=== PATIENT | female | born 1995 | race Caucasian/White ===

== ENCOUNTER 2016-08-19 00:36 | Inpatient (IN) | payer MEDICAID ==
[2016-08-19 01:12] LABS: APPEARANCE,URINE CLOUDY; BILIRUBIN,URINE NEGATIVE (NEGATIVE); GLUCOSE, URINE NEGATIVE (NEGATIVE); KETONES,URINE NEGATIVE (NEGATIVE); LEUKOCYTE ESTERASE,URINE SMALL (NEGATIVE); NITRITE,URINE NEGATIVE (NEGATIVE); PROTEIN,URINE 30 mg/dL (NEGATIVE); URINE SPECIFIC GRAVITY 1.021; UROBILINOGEN,URINE NEGATIVE mg/dL (<2.0)
[2016-08-19 01:21] LABS: AMNISURE (ROM) POSITIVE (NEGATIVE)
[2016-08-19] MEDS ORDERED: RINGERS SOLUTION,LACTATED 1,000 ML IV ONE (01:23)
[2016-08-19] MEDS ORDERED: PENICILLIN G-K 5 MILLION UNIT VIAL ONE (01:28)
[2016-08-19 01:29] LABS: URINE BARBITURATES SCREEN NEGATIVE; URINE METHADONE SCREEN NEGATIVE; URINE OPIATES LOW NEGATIVE; URINE PHENCYCLIDINE SCREEN NEGATIVE
[2016-08-19] MEDS ORDERED: PENICILLIN G-K 5 MILLION UNIT VIAL IV PRN (01:29)
[2016-08-19] MEDS ORDERED: PENICILLIN G POTASSIUM 5,000,000 UNIT in DEXTROSE 5%-WATER 100 ML IV ONE (01:30)
[2016-08-19] MEDS: RINGERS SOLUTION,LACTATED 1,000 ML IV PRN ×2 (01:53→02:19)
[2016-08-19 01:56] LABS: ABSOLUTE BASOPHILS # (AUTO) 0.1 10^3/uL (0.0-0.2); ABSOLUTE EOSINOPHILS # (AUTO) 0.2 10^3/uL (0.0-0.6); ABSOLUTE LYMPHOCYTES (AUTO) 3.6 10^3/uL (0.5-4.7); ABSOLUTE MONOCYTES (AUTO) 0.9 10^3/uL (0.1-1.4); ABSOLUTE NEUT (AUTO) 11.3 10^3/uL (1.7-8.2); BASOPHILS % (AUTO) 0.7 % (0-2); EOSINOPHILS % (AUTO) 1.4 % (0-6); HEMATOCRIT 30.7 % (36.0-47.0); HEMOGLOBIN 10.3 g/dL (12.0-15.5); HGB HCT DIFFERENCE 0.2; LYMPHOCYTES % (AUTO) 22.1 % (13-45); MEAN CORPUSCULAR HEMOGLOBIN 27.7 pg (27.0-33.4); MEAN CORPUSCULAR HGB CONC 33.7 g/dL (32.0-36.0); MEAN CORPUSCULAR VOLUME 82 fl (80-97); MONOCYTES % (AUTO) 5.5 % (3-13); RED BLOOD COUNT 3.74 10^6/uL (3.72-5.28); RED CELL DISTRIBUTION WIDTH 16.7 % (11.5-14.0); SEGMENTED NEUTROPHILS % (AUTO) 70.3 % (42-78); WHITE BLOOD COUNT 16.1 10^3/uL (4.0-10.5)
[2016-08-19] MEDS ORDERED: MISOPROSTOL 0.2 MG TABLET ONE (02:33)
[2016-08-19] MEDS ORDERED: OXYTOCIN/NORMAL SALINE 20 UNIT/1,000 ML RTUINJ ONE (02:33)
[2016-08-19] MEDS ORDERED: LIDOCAINE 1% INJ-PF (10 MG/ML) 30 ML SDV ONE (02:33)
[2016-08-19] MEDS ORDERED: FENTANYL/BUPIVACAINE/NS/PF 0 MCG/0 ML RTUINJ EPI ONE (02:33)
[2016-08-19] MEDS ORDERED: EPHEDRINE SULFATE INJ 50 MG/1 ML AMPULE ONE (02:33)
[2016-08-19] MEDS ORDERED: BUPIVACAINE HCL 0.25 % INJ/PF (2.5 MG/1 ML) 30 ML VIAL ONE (02:34)
[2016-08-19] MEDS ORDERED: DIPH/PERTUSS(ACELL)/TETANUS VAC/PF 0.5 ML SYR (>=10YO) IM PRN (03:50)
[2016-08-19] MEDS ORDERED: DIBUCAINE 1% OINTMENT 28 GM TP PRN (03:50)
[2016-08-19] MEDS ORDERED: MEASLES,MUMPS&RUBELLA VACC/PF 0.5 ML VIAL SUBCUT PRN (03:50)
[2016-08-19] MEDS ORDERED: ZOLPIDEM TARTRATE 5 MG TABLET PO PRN (03:50)
[2016-08-19] MEDS ORDERED: OXYTOCIN/NORMAL SALINE 1,000 ML IV PRN (03:50)
[2016-08-19] MEDS ORDERED: ACETAMINOPHEN WITH CODEINE #3 TABLET PO PRN (03:50)
[2016-08-19] MEDS ORDERED: BENZOCAINE/MENTHOL AEROSOL SPRAY 56 ML TOP PRN (03:50)
--- NOTE | 2016-08-19 04:43 | Delivery Summary ---
Del Sum A-C Datetime Report Generated by CPN: 08/19/2016 04:42 DELIVERY PERSONNEL DELIVERY PERSONNEL: [id number] Delivery Doctor:: Teresa Bustillos MD Labor and Delivery Nurse:: Sheryl Spain RNacoustical tile patternmaker Nurse:: Dinora Liriano RN Carbon Printer/DIRECTOR VIDEO: Olesya Semar, MANUFACTURED BUILDINGS REPAIRER MATERNAL INFORMATION Delivery Anesthesia: None Medications After Delivery: Pitocin Drip 20 Units/1000ml NSS Maternal Complications: Precipitous Labor (<3hrs) LABOR SUMMARY EDC: 09/01/2016 00:00 No. Babies in Womb: 1 Attempted: No Labor Anesthesia: None LABOR INFORMATION Reason for Induction: Not Applicable Onset of Labor: 08/19/2016 01:18 Complete Dilatation: 08/19/2016 03:19 Oxytocin: N/A Group B Beta Strep: Positive Antibiotics # of Doses: 1 Antibiotics Time of Last Dose: 0151 Name of Antibiotic Given: PCN Steroids Given: None Reason Steroids Not Administered: Not Applicable MEMBRANES Membranes Rupture Method: Spontaneous Rupture of Membranes: 08/18/2016 14:30 Length of Rupture (hr): 13.00 Amniotic Fluid Color: Clear Amniotic Fluid Odor: Normal STAGES OF LABOR Stage 1 hr: 2 Stage 1 min: 1 Stage 2 hr: 0 Stage 2 min: 11 Stage 3 hr: 0 Stage 3 min: 4 Total Time in Labor hr: 2 Total Time in Labor min: 16 VAGINAL DELIVERY Episiotomy: None Laceration Extension: N/A Laceration Type: None Laceration Repair: Not Applicable Sponge Count Correct: N/A Sharps Count Correct: N/A CSECTION DELIVERY Primary Indication: N/A Secondary Indication: N/A CSection Incidence: N/A Labor: N/A Elective: N/A CSection Incision: N/A BABY A INFORMATION Delivery Date/Time: 08/19/2016 03:30 Method of Delivery: Vaginal Born in Route : No : N/A Forceps: N/A Vacuum Extraction: N/A Shoulder Dystocia : No PRESENTATION/POSITION BABY A Presentation: Cephalic Cephalic Presentation: Vertex Vertex Position: Left Occipital Anterior Breech Presentation: N/A PLACENTA INFORMATION BABY A Placenta Delivery Time : 08/19/2016 03:34 Placenta Method of Delivery: Spontaneous Placenta Status: Delivered SCORES BABY A Heart Rate 1 min: >100 bpm Resp Effort 1 min: Good Cry Reflex Irritability 1 min: Cough or Sneeze or Pulls Away Muscle Tone 1 min: Active Motion Color 1 min: Body [place], Extremities Blue Resuscitation Effort 1 min: Tactile Stimulation SCORE 1 MIN: 9 Heart Rate 5 min: >100 bpm Resp Effort 5 min: Good Cry Reflex Irritability 5 min: Cough or Sneeze or Pulls Away Muscle Tone 5 min: Active Motion Color 5 min: Body [place], Extremities Blue Resuscitation Effort 5 min: Tactile Stimulation SCORE 5 MIN: 9 INFANT INFORMATION BABY A Gestational Age at Delivery: 38.1 Gestational Status: Early Term- 37- 38.6 Weeks Infant Outcome : Liveborn Infant Condition : Stable Infant Sex: Male IDENTIFICATION BABY A Verification Date/Time: 08/19/2016 03:39 ID Band Number: [id number] Mother's Name Verified: Yes Infant RN Verifying : R Dhara, RNC Additional Verifying Personnel: C Marianna, RN WEIGHT/LENGTH BABY A Birthweight (gm): 3500 Infant Weight (lb): 7 Infant Weight (oz): 11 Length (in): 19.00 Infant Length (cm): 48.26 CORD INFORMATION BABY A No. Cord Vessels: 3 Nuchal Cord : N/A Cord Blood Taken: Yes-For Storage (Mom's Blood type +) ASSESSMENT BABY A Skin to Skin: Yes BABY B INFORMATION : N/A SIGNATURES Signature: with User ID: Zander
[2016-08-19] MEDS ORDERED: IBUPROFEN 800 MG TABLET ONE (04:56)
[2016-08-19] MEDS: IBUPROFEN 800 MG TABLET PO SCH ×3 (05:01→22:03)
[2016-08-19] MEDS ORDERED: PENICILLIN G POTASSIUM 2,500,000 UNIT in DEXTROSE 5%-WATER 50 ML IV SCH (05:30)
--- NOTE | 2016-08-19 05:58 | Admission Physical ---
Datetime Report Generated by CPN: 08/19/2016 05:58 CURRENT ADMISSION Chief Complaint: Uterine Contractions; Vaginal Bleeding Indication for Induction: Not Applicable Admit Plan: Admit to Unit; Initiate Labor Protocol ALLERGIES Medication Allergies: Yes Medication Allergies: aspirin (04/16/2015) Latex: No Latex Allergies Food Allergies: N/A Environmental Allergies: N/A OBSTETRICAL HISTORY EDC: 09/01/2016 00:00 : 2 Para: 1 Term: 1 : 0 SAB: 0 IAB: 0 Ectopic: 0 Livin Cesareans: 0 VBACs: 0 Multiple Births: 0 Gestational Diabetes: No Rh Sensitization: No Incompetent Cervix: No MARY: No Infertility: No ART Treatment: No Uterine Anomaly: No IUGR: No Hx Previous C/S: No Macrosomia: No Hx Loss/Stillborn: No PIH: No Hx : No Placenta Previa/Abruption: No Depression/PP Depression: No PTL/PROM: No Post Hemorrhage: No Current Procedures: Ultrasound Obstetrical History Comments: G1 - 2015, , Girl G2 - Current SEE RECORDS Alcohol: No Marijuana : No Cocaine: No Other Illicit Drugs: No Cigarettes: Current Everyday Smoker. 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 Surgery: No Heart Disease: No Hosp/Surgery: Yes Autoimmune Disorder: No Anesthetic Complications: No Kidney Disease: Yes Abnormal Pap Smear: No Neuro/Epilepsy: No Psychiatric Disorders: No Other Medical Diseases: No Hepatitis/Liver Disease: No Significant Family History: No Varicosities/Phlebitis: No Trauma/Violence : No Thyroid Dysfunction: No Medical History Comments: UTI's, T_A INFECTIOUS HISTORY Gonorrhea: No Genital Herpes: No Chlamydia: No Tuberculosis: No Syphilis: No Hepatitis: No HIV/AIDS Exposure: No Rash or Viral Illness: No HPV: No PHYSICAL EXAM General: Normal HEENT: Normal Neurologic: Normal Thyroid: Normal Heart: Normal Lungs: Normal Breast: Normal Back: Normal Abdomen: Normal Genitourinary Exam: Normal Extremities: Normal DTRs: Normal Pelvic Type: Adequate Vital Signs: Reviewed VAGINAL EXAM Dilatation: 7 Effacement: 90 Station: -1 MEMBRANES Pooling: Positive Membranes: Ruptured Amniotic Fluid Color: Clear FETUS A EGA: 38.1 Monitoring: External US FHR- Baseline: 130 Variability: Moderate 6-25bpm Accelerations: 15X15 Decelerations: None FHR Category: Category I Estimated Weight (gm): 3700 Presentation: Vertex PLANS FOR LABOR AND DELIVERY Labor and Delivery: None Pain Management: Epidural Feeding Preference: Formula Benefit of Breast Feed Discussed: Yes Circumcision: Yes INFORMED CONSENT Signature: with User ID: Zander Signature: with User ID: Zander : with User ID: Zander
[2016-08-19] MEDS: SENNOSIDES/DOCUSATE 8.6-50 MG 1 EACH TABLET PO SCH (09:50)
[2016-08-19] MEDS: FERROUS SULFATE 325 MG TABLET PO SCH ×2 (09:50→17:34)
[2016-08-19] MEDS: PRENATAL VITAMIN W-O CA NO5/FE FUMARATE/FA CAPSULE PO SCH (09:50)
[2016-08-19] MEDS: DOCUSATE SODIUM 100 MG CAPSULE PO SCH ×2 (09:51→17:33)
--- NOTE | 2016-08-19 10:28 | PDOC PROGRESS REPORT ---
Subjective-OB Subjective: Post Delivery Day: 20 year old. Denies any needs at this time Physical Exam (OB) Vital Signs: Temp Pulse Resp BP Pulse Ox 97.6 F 100 H 17 138/79 H 100 08/19/16 05:46 08/19/16 05:46 08/19/16 05:46 08/19/16 05:46 08/19/16 05:46 Intake & Output 08/18/16 08/19/16 08/20/16 06:59 06:59 06:59 Weight 132.5 kg - Lochia Lochia Amount: Scant < 10 ml Lochia Color: Rubra/Red - Abdomen Description: Tender, Soft Hernia Present: No Bowel Sounds: Normoactive Flatus Presence: Present Stool: No Fundal Description: Firm, Midline Fundal Height: u/u - u/2 Objective-Diagnostic Laboratory: 08/19/16 01:44 08/19/16 08/19/16 08/19/16 00:51 01:44 01:44 WBC 16.1 H RBC 3.74 Hgb 10.3 L Hct 30.7 L MCV 82 MCH 27.7 MCHC 33.7 RDW 16.7 H Plt Count 312 Seg Neutrophils % 70.3 Lymphocytes % 22.1 Monocytes % 5.5 Eosinophils % 1.4 Basophils % 0.7 Absolute Neutrophils 11.3 H Absolute Lymphocytes 3.6 Absolute Monocytes 0.9 Absolute Eosinophils 0.2 Absolute Basophils 0.1 Urine Color YELLOW Urine Appearance CLOUDY Urine pH 6.0 Ur Specific Hydro 1.021 Urine Protein 30 H Urine Glucose (UA) NEGATIVE Urine Ketones NEGATIVE Urine Blood NEGATIVE Urine Nitrite NEGATIVE Ur Leukocyte Esterase SMALL H Blood Type A POSITIVE Antibody Screen NEGATIVE
[2016-08-19] MEDS: ACETAMINOPHEN WITH CODEINE #3 TABLET PO PRN ×3 (12:01→22:03)
[2016-08-20] MEDS: ACETAMINOPHEN WITH CODEINE #3 TABLET PO PRN ×4 (02:40→22:58)
[2016-08-20] MEDS: IBUPROFEN 800 MG TABLET PO SCH ×3 (06:07→22:08)
[2016-08-20 07:11] LABS: HEMATOCRIT 28.9 % (36.0-47.0); HEMOGLOBIN 9.6 g/dL (12.0-15.5); HGB HCT DIFFERENCE -0.1; MEAN CORPUSCULAR HEMOGLOBIN 27.7 pg (27.0-33.4); MEAN CORPUSCULAR HGB CONC 33.1 g/dL (32.0-36.0); MEAN CORPUSCULAR VOLUME 84 fl (80-97); RED BLOOD COUNT 3.46 10^6/uL (3.72-5.28); RED CELL DISTRIBUTION WIDTH 16.7 % (11.5-14.0); WHITE BLOOD COUNT 11.1 10^3/uL (4.0-10.5)
[2016-08-20] MEDS: PRENATAL VITAMIN W-O CA NO5/FE FUMARATE/FA CAPSULE PO SCH (09:28)
[2016-08-20] MEDS: DOCUSATE SODIUM 100 MG CAPSULE PO SCH ×2 (09:28→17:24)
[2016-08-20] MEDS: FERROUS SULFATE 325 MG TABLET PO SCH ×2 (09:28→17:23)
[2016-08-20] MEDS: SENNOSIDES/DOCUSATE 8.6-50 MG 1 EACH TABLET PO SCH (09:28)
--- NOTE | 2016-08-20 10:35 | PDOC PROGRESS REPORT ---
Subjective-OB Subjective: Post Delivery Day: 20 year old. Denies any needs at this time. Pt doing well, no concerns. Reports light bleeding, regular diet and voiding well. Physical Exam (OB) Vital Signs: Temp Pulse Resp BP Pulse Ox 98.2 F 64 16 121/77 100 08/20/16 08:12 08/20/16 08:12 08/20/16 08:12 08/20/16 08:12 08/20/16 08:12 Intake & Output 08/19/16 08/20/16 08/21/16 06:59 06:59 06:59 Intake Total 250 Balance 250 Weight 132.5 kg - Lochia Lochia Amount: Scant < 10 ml Lochia Color: Rubra/Red - Abdomen Description: Tender, Soft Hernia Present: No Fundal Description: Firm, Midline Fundal Height: u/u - u/2 Objective-Diagnostic Laboratory: 08/20/16 07:05 08/20/16 07:05 WBC 11.1 H RBC 3.46 L Hgb 9.6 L Hct 28.9 L MCV 84 MCH 27.7 MCHC 33.1 RDW 16.7 H Plt Count 259 Assessment and Plan(PN) - Assessment and Plan (1) Delivery normal Is this a current diagnosis for this admission?: Yes (2) Insufficient antepartum care Is this a current diagnosis for this admission?: Yes (3) Nurse controlled delivery Is this a current diagnosis for this admission?: Yes - Time Spent with Patient Time with patient: Less than 15 minutes Medications reviewed and adjusted accordingly: Yes - Disposition Anticipated Discharge: Home Within: within 48 hours
[2016-08-20] MEDS: FAMOTIDINE 20 MG TABLET PO SCH (22:08)
[2016-08-21] MEDS: IBUPROFEN 800 MG TABLET PO SCH (05:45)
[2016-08-21] MEDS: ACETAMINOPHEN WITH CODEINE #3 TABLET PO PRN (07:36)
[2016-08-21 08:23] VITALS: BP 140/71
[2016-08-21] MEDS: FAMOTIDINE 20 MG TABLET PO SCH (09:56)
[2016-08-21] MEDS: PRENATAL VITAMIN W-O CA NO5/FE FUMARATE/FA CAPSULE PO SCH (09:56)
[2016-08-21] MEDS: DOCUSATE SODIUM 100 MG CAPSULE PO SCH (09:56)
[2016-08-21] MEDS: SENNOSIDES/DOCUSATE 8.6-50 MG 1 EACH TABLET PO SCH (09:56)
[2016-08-21] MEDS: FERROUS SULFATE 325 MG TABLET PO SCH (09:56)
--- NOTE | 2016-08-21 11:14 | PDOC DISCHARGE SUMMARY ---
Final Diagnosis Discharge Date: 08/21/16 - Final Diagnosis (1) Delivery normal Is this a current diagnosis for this admission?: Yes (2) Insufficient antepartum care Is this a current diagnosis for this admission?: Yes (3) Nurse controlled delivery Is this a current diagnosis for this admission?: Yes Discharge Data - Discharge Medication Home Medications: Vit No.129/Iron/FA [ One Daily Tablet] 1 tab PO DAILY 09/16/15 Ibuprofen [Motrin 800 mg Tablet] 800 mg PO Q8 #60 tablet 08/21/16 Reason(s) for Admission: Onset of Labor Intrapartum Procedure(s): Spontaneous Vaginal Delivery - Diagnosis Test Laboratory: Temp Pulse Resp BP Pulse Ox 98.1 F 92 H 16 140/75 H 99 08/19/16 20:06 08/19/16 20:06 08/19/16 20:06 08/19/16 20:06 08/19/16 20:06 08/19/16 08/19/16 08/20/16 00:51 01:44 07:05 RBC 3.74 3.46 L Hgb 10.3 L 9.6 L Hct 30.7 L 28.9 L Urine Opiates Screen NEGATIVE - Discharge information/Instructions Discharge Activity: Balance Activity w/Rest, Pelvic Rest Discharge Diet: Regular Disposition: HOME, SELF-CARE Follow up with: [facility] in: 1, Weeks
--- NOTE | 2016-08-21 15:26 | L&D Discharge Summary ---
OB Discharge Summary Datetime Report Generated by CPN: 08/21/2016 15:25 DISCHARGE DIAGNOSIS Gestation: 38.1 Number of Babies in Womb: 1 Parity: 1
--- NOTE | 2016-08-21 16:45 | L&D General Admission ---
General Admit Datetime Report Generated by CPN: 08/21/2016 16:45 INFORMATION Patient Age: 20 (06/23/2016 13:28:QS system process) EDC: 09/01/2016 00:00 (08/19/2016 01:04:Sheryl Spain RN) : 2 (08/19/2016 01:04:Sheryl Spain RN) Para: 1 (08/19/2016 01:04:Sheryl Spain RN) Term: 1 (08/19/2016 01:04:Dinora Liriano RN) : 0 (08/19/2016 01:04:Dinora Liriano RN) Spontaneous Abortions: 0 (08/19/2016 01:04:Dinora Liriano RN) Induced Abortions: 0 (08/19/2016 01:04:Dinora Liriano RN) Livin (08/19/2016 01:04:Dinora Liriano RN) Cesareans: 0 (08/19/2016 01:04:Dinora Liriano RN) VBACs: 0 (08/19/2016 01:04:Dinora Liriano RN) Ectopic: 0 (08/19/2016 01:04:Dinora Liriano RN) Multiple Births: 0 (08/19/2016 01:04:Dinora Liriano RN) Baby, Number in Womb: 1 (08/19/2016 01:04:Dinora Liriano RN) CARE Primary Indian Blanket Weaver: [facility] (08/19/2016 01:04:Sheryl Spain RN) Adequate Care: Yes (08/19/2016 01:04:Sheryl Spain RN) Height (in): 61 (08/21/2016 11:14:QS system process) Height (in): 61 (08/19/2016 09:19:QS system process) Height (in): 61 (08/19/2016 05:57:QS system process) Height (in): 61 (08/19/2016 03:34:QS system process) Height (in): 61 (08/19/2016 01:35:QS system process) Height (in): 61 (08/19/2016 01:32:QS system process) Height (in): 61 (08/19/2016 01:30:QS system process) ALLERGIES Medication Allergy: Yes (08/19/2016 01:04:Sheryl Spain RN) Medication Allergies: aspirin (04/16/2015) (06/23/2016 13:28:QS system process) Latex Allergy: No Latex Allergies (08/19/2016 01:04:Sheryl Spain RN) Food Allergies: N/A (08/19/2016 01:04:Sheryl Spain RN) Environmental Allergies: N/A (08/19/2016 01:04:Sheryl Spain RN) COMMUNICATION Primary Language: Icelandic (08/19/2016 01:04:Sheryl Spain RN) Medical Tx Preferred Language: Icelandic (08/19/2016 01:04:Sheryl Spain RN) DEMOGRAPHICS Address: [address] [place] [id number] (06/23/2016 13:28:QS system process) Zipcode: [address] (06/23/2016 13:28:QS system process) Home (06/23/2016 13:28:QS system process) SSN: [id number] (06/23/2016 13:28:QS system process) Next of Kin Name: ALBERTO FAITH (06/23/2016 13:28:QS system process) Next of Kin (06/23/2016 13:28:QS system process) Next of Kin Relationship: MO (06/23/2016 13:28:QS system process) Date of : 1995 (06/23/2016 13:28:QS system process) Marital Status: Single (06/23/2016 13:28:QS system process) Sex: Female (06/23/2016 13:28:QS system process) Race: (06/23/2016 13:28:QS system process) Ethnicity: Non- or (06/23/2016 13:28:QS system process) Denominational: Restorationist (06/23/2016 13:28:QS system process) FOB Involved: Yes (08/19/2016 01:04:Sheryl Spain RN) DRUG AND ALCOHOL USE Alcohol: No (08/19/2016 01:04:Sheryl Spain RN) Cigarettes: Current Everyday Smoker. [id number] (08/19/2016 01:04:Sheryl Spain RN) Average Cigarettes Smoked: > 10 per day (08/19/2016 01:04:Sheryl Spain RN) Advised to Stop Smoking: Yes (08/19/2016 01:04:Sheryl Spain RN) Marijuana: No (08/19/2016 01:04:Sheryl Spain RN) Cocaine: No (08/19/2016 01:04:Sheryl Spain RN) Other Illicit Drugs: No (08/19/2016 01:04:Sheryl Spain RN) VACCINE HISTORY Influenza Vaccine: No (08/19/2016 01:04:Sheryl Spain RN) Pneumococcal Vaccine: No (08/19/2016 01:04:Sheryl Spain RN) Tetanus Vaccine: No (08/19/2016 01:04:Sheryl Spain RN) Tdap Vaccine: No (08/19/2016 01:04:Sheryl Spain RN) Hepatitis B Vaccine: No (08/19/2016 01:04:Sheryl Spain RN) Postdoctoral Research Associate: [facility] (08/19/2016 01:04:Sheryl Spain RN) Feeding Preference: Formula (08/19/2016 01:04:Sheryl Spain RN) Benefit of Breast Feed Discussed: Yes (08/19/2016 01:04:Sheryl Spain RN) Circumcision: Yes (08/19/2016 01:04:Sheryl Spain RN) Classes Attended: No (08/19/2016 01:04:Sheryl Spain RN) Tubal Ligation: No (08/19/2016 01:04:Sheryl Spain RN) Tubal Authorization Signed: N/A (08/19/2016 01:04:Sheryl Spain RN) Consent: N/A (08/19/2016 01:04:Sheryl Spain RN) Consent Signed: N/A (08/19/2016 01:04:Sheryl Spain RN) Pain Management Plans: Epidural (08/19/2016 01:04:Sheryl Spain RN) Plans for Labor and Delivery: None (08/19/2016 01:04:Sheryl Spain RN) Support Person: Daryn Rasmussen (08/19/2016 01:04:Sheryl Spain RN) Support Person Relationship: Significant Other (08/19/2016 01:04:Sheryl Spain RN) Cultural/Spritual Practice: No (08/19/2016 01:04:Sheryl Spain RN) Spir/Cult Dietary Needs: No (08/19/2016 01:04:Sheryl Spain RN) LIVING SITUATION/DISCHARGE PLAN Living Arrangements: House (08/19/2016 01:04:Sheryl Spain RN) Adequate Access to:: Electric; Heat; Refrigeration; Plumbing/Running water; Phone; Transportation (08/19/2016 01:04:Sheryl Spain RN) WIC Program: Yes (08/19/2016 01:04:Sheryl Spain RN) Discharge Systems Checkout Mechanic Person: Daryn Rasmussen (08/19/2016 01:04:Sheryl Spain RN) Person to Help after Discharge: Daryn Rasmussen (08/19/2016 01:04:Sheryl Spain RN) Currently Using Commun Resources: Anais (08/19/2016 01:04:Sheryl Spain RN) Outside Agency/Cooking Casing And Drying Supervisor: Anais (08/19/2016 01:04:Sheryl Spain RN) Car Seat for Discharge: No (08/19/2016 01:04:Sheryl Spain RN) Adoption Requested: No (08/19/2016 01:04:Sheryl Spain RN) Pt Contact w/infant Post : N/A (08/19/2016 01:04:Sheryl Spain RN) LABS Blood Type: A Positive (08/19/2016 01:04:Dinora Liriano RN) Antibody Screen: Negative (08/19/2016 01:04:Dinora Liriano RN) Rho(G) this : Not Applicable (08/19/2016 01:04:Dinora Liriano RN) Hemoglobin: 9.6 L (08/20/2016 07:05:QS system process) Hemoglobin: 10.3 L (08/19/2016 01:44:QS system process) Hematocrit: 28.9 L (08/20/2016 07:05:QS system process) Hematocrit: 30.7 L (08/19/2016 01:44:QS system process) MCV: 84 (08/20/2016 07:05:QS system process) MCV: 82 (08/19/2016 01:44:QS system process) Group Beta Strep: Positive (08/19/2016 01:04:Dinora Liriano RN) Gonorrhea: Negative (08/19/2016 01:04:Dinora Liriano RN) Chlamydia: Negative (08/19/2016 01:04:Dinora Liriano RN) RPR/VDRL: Nonreactive (08/19/2016 01:04:Dinora Liriano RN) HIV Results: Negative (08/19/2016 01:04:Dinora Liriano RN) Hepatitis B: Negative (08/19/2016 01:04:Dinora Liriano RN) Rubella: Immune (08/19/2016 01:04:Dinora Liriano RN) OB/PREVIOUS HISTORY Previous Procedures: Ultrasound; NST (08/19/2016 01:04:Sheryl Spain RN) Current Procedures: Ultrasound (08/19/2016 01:04:Sheryl Spain RN) History of Previous : No (08/19/2016 01:04:Sheryl Spain RN) History of Gestational Diabetes: No (08/19/2016 01:04:Sheryl Spain RN) History of PIH: No (08/19/2016 01:04:Sheryl Spain RN) History of Incompetent Cervix: No (08/19/2016 01:04:Sheryl Spani RN) History of Placenta Previa/Abrup: No (08/19/2016 01:04:Sheryl Spain RN) History of Macrosomia: No (08/19/2016 01:04:Sheryl Spain RN) History of IUGR: No (08/19/2016 01:04:Sheryl Spain RN) History of Hemorrhage: No (08/19/2016 01:04:Sheryl Spain RN) History of Loss/Stillborn: No (08/19/2016 01:04:Sheryl Spain RN) History of : No (08/19/2016 01:04:Sheryl Spain RN) History of D (Rh) Sensitization: No (08/19/2016 01:04:Sheryl Spain RN) History Recurrent Loss/Stillborn: No (08/19/2016 01:04:Sheryl Spain RN) History Depression/PP Depression: No (08/19/2016 01:04:Sheryl Spain RN) History of Uterine Anomaly/MARY: No (08/19/2016 01:04:Sheryl Spain RN) History of Infertility: No (08/19/2016 01:04:Sheryl Spain RN) History of ART Treatment: No (08/19/2016 01:04:Sheryl Spain RN) History of MARY: No (08/19/2016 01:04:Sheryl Spain RN) Comments Obstetrical History: G1 - 2016, , Girl G2 - Current (08/19/2016 01:04:Sheryl Spain RN) MEDICAL HISTORY Med Hx Diabetes: No (08/19/2016 01:04:Sheryl Spain RN) Med Hx Hypertension: No (08/19/2016 01:04:Sheryl Spain RN) Med Hx Heart Disease: No (08/19/2016 01:04:Sheryl Spain RN) Med Hx Autoimmune Disorder: No (08/19/2016 01:04:Sheryl Spain RN) Med Hx Kidney Disease/UTI: Yes (08/19/2016 01:04:Sheryl Spain RN) Med Hx Neurologic/Epilepsy: No (08/19/2016 01:04:Sheryl Spain RN) Med Hx Psychiatric Disorders: No (08/19/2016 01:04:Sheryl Spain RN) Med Hx Hepatitis/Liver Disease: No (08/19/2016 01:04:Sheryl Spain RN) Med Hx Varicosities/Phlebitis: No (08/19/2016 01:04:Sheryl Spain RN) Med Hx Thyroid Dysfunction: No (08/19/2016 01:04:Sheryl Spain RN) Med Hx Trauma/Violence: No (08/19/2016 01:04:Sheryl Spain RN) Med Hx Blood Transfusion: No (08/19/2016 01:04:Sheryl Spain RN) Med Hx Pulmonary (Asthma,TB): No (08/19/2016 01:04:Sheryl Spain RN) Med Hx Breast: No (08/19/2016 01:04:Sheryl Spain RN) Med Hx MARBLE INSTALLATION HELPER Surgery: No (08/19/2016 01:04:Sheryl Spain RN) Med Hx Hospitalization/Surgery: Yes (08/19/2016 01:04:Sheryl Spain RN) Med Hx Anesthetic Complications: No (08/19/2016 01:04:Sheryl Spain RN) Med Hx Abnormal Pap Smear: No (08/19/2016 01:04:Sheryl Spain RN) Other Medical Diseases: No (08/19/2016 01:04:Sheryl Spain RN) Med Hx Significant Family Hx: No (08/19/2016 01:04:Sheryl Spain RN) Details of Med/Surg Hx: UTI's, T_A (08/19/2016 01:04:Sheryl Spain RN) INFECTIOUS HISTORY Inf Hx Gonorrhea: No (08/19/2016 01:04:Sheryl Spain RN) Inf Hx Chlamydia: No (08/19/2016 01:04:Sheryl Spain RN) Inf Hx Syphilis: No (08/19/2016 01:04:Sheryl Spain RN) Inf Hx HIV/AIDS: No (08/19/2016 01:04:Sheryl Spain RN) Inf Hx Human Papilloma Virus: No (08/19/2016 01:04:Sheryl Spain RN) Inf Hx Pt/Partner Genital Herpes: No (08/19/2016 01:04:Sheryl Spain RN) Inf Hx Tuberculosis/Exposure: No (08/19/2016 01:04:Sheryl Spain RN) Inf Hx Hepatitis B,C: No (08/19/2016 01:04:Sheryl Spain RN) Inf Hx Rash or Viral Illness: No (08/19/2016 01:04:Sheryl Spain RN) GENETIC HISTORY Gen Hx Age >=35 at LATOYA: No (08/19/2016 01:04:Sheryl Spain RN) Gen Hx Thalassemia: No (08/19/2016 01:04:Sheryl Spain RN) Gen Hx Congenital Heart Defect: No (08/19/2016 01:04:Sheryl Spain RN) Gen Hx Neural Tube Defect: No (08/19/2016 01:04:Sheryl Spain RN) Gen Hx Down's Syndrome: No (08/19/2016 01:04:Sheryl Spain RN) Gen Hx Surjit-Sachs: No (08/19/2016 01:04:Sheryl Spain RN) Gen Hx Ulices: No (08/19/2016 01:04:Sheryl Spain RN) Gen Hx Familial Dysautonomia: No (08/19/2016 01:04:Sheryl Spain RN) Gen Hx Sickle Cell Disease/Trait: No (08/19/2016 01:04:Sheryl Spain RN) Gen Hx Hemophilia/Blood Disorder: No (08/19/2016 01:04:Sheryl Spain RN) Gen Hx Muscular Dystrophy: No (08/19/2016 01:04:Sheryl Spain RN) Gen Hx Cystic Fibrosis: No (08/19/2016 01:04:Sheryl Spain RN) Gen Hx [place] Chorea: No (08/19/2016 01:04:Sheryl Spain RN) Gen Hx Mental Retardation/Autism: No (08/19/2016 01:04:Sheryl Spain RN) Gen Hx Tested for Fragile X: No (08/19/2016 01:04:Sheryl Spain RN) Gen Hx Other Inher/Chromosomal: No (08/19/2016 01:04:Sheryl Spain RN) Gen Hx Maternal Metabolic DO: No (08/19/2016 01:04:Sheryl Spain RN) Gen Hx Pt Father or FOB Defect: No (08/19/2016 01:04:Sheryl Spain RN) Gen Hx Other Genetic History: No (08/19/2016 01:04:Sheryl Spain RN) Gen Hx Drugs/Meds since LMP: Yes (08/19/2016 01:04:Sheryl Spain RN) Gen Hx Medications: Vitamins (08/19/2016 01:04:Sheryl Spain RN)
--- NOTE | 2016-08-21 16:45 | L&D Discharge Summary ---
OB Discharge Summary Datetime Report Generated by CPN: 08/21/2016 16:45 DISCHARGE DIAGNOSIS Gestation: 38.1 Number of Babies in Womb: 1 Parity: 1
--- NOTE | 2016-08-21 16:45 | L&D Current Admission ---
Current Admit Datetime Report Generated by CPN: 08/21/2016 16:45 ADMISSION INFORMATION Chief Complaint: Contractions (08/19/2016 01:10:Sheryl Spain, RN)
--- NOTE | 2016-08-21 22:45 | L&D General Admission ---
General Admit Datetime Report Generated by CPN: 08/21/2016 22:45 INFORMATION Patient Age: 20 (06/23/2016 13:28:QS system process) EDC: 09/01/2016 00:00 (08/19/2016 01:04:Sheryl Spain RN) : 2 (08/19/2016 01:04:Sheryl Spain RN) Para: 1 (08/19/2016 01:04:Sheryl Spain RN) Term: 1 (08/19/2016 01:04:Dinora Liriano RN) : 0 (08/19/2016 01:04:Dinora Liriano RN) Spontaneous Abortions: 0 (08/19/2016 01:04:Dinora Liriano RN) Induced Abortions: 0 (08/19/2016 01:04:Dinora Liriano RN) Livin (08/19/2016 01:04:Dinora Liriano RN) Cesareans: 0 (08/19/2016 01:04:Dinora Liriano RN) VBACs: 0 (08/19/2016 01:04:Dinora Liriano RN) Ectopic: 0 (08/19/2016 01:04:Dinora Liriano RN) Multiple Births: 0 (08/19/2016 01:04:Dinora Liriano RN) Baby, Number in Womb: 1 (08/19/2016 01:04:Dinora Liriano RN) CARE Primary Warehouse Technician: [facility] (08/19/2016 01:04:Sheryl Spain RN) Adequate Care: Yes (08/19/2016 01:04:Sheryl Spain RN) Height (in): 61 (08/21/2016 11:14:QS system process) Height (in): 61 (08/19/2016 09:19:QS system process) Height (in): 61 (08/19/2016 05:57:QS system process) Height (in): 61 (08/19/2016 03:34:QS system process) Height (in): 61 (08/19/2016 01:35:QS system process) Height (in): 61 (08/19/2016 01:32:QS system process) Height (in): 61 (08/19/2016 01:30:QS system process) ALLERGIES Medication Allergy: Yes (08/19/2016 01:04:Sheryl Spain RN) Medication Allergies: aspirin (04/16/2015) (06/23/2016 13:28:QS system process) Latex Allergy: No Latex Allergies (08/19/2016 01:04:Sheryl Spain RN) Food Allergies: N/A (08/19/2016 01:04:Sheryl Spain RN) Environmental Allergies: N/A (08/19/2016 01:04:Sheryl Spain RN) COMMUNICATION Primary Language: Cymraes (08/19/2016 01:04:Sheryl Spain RN) Medical Tx Preferred Language: Cymraes (08/19/2016 01:04:Sheryl Spain RN) DEMOGRAPHICS Address: [address] [place] [id number] (06/23/2016 13:28:QS system process) Zipcode: [id number] (06/23/2016 13:28:QS system process) Home (06/23/2016 13:28:QS system process) SSN: [id number] (06/23/2016 13:28:QS system process) Next of Kin Name: ALBERTO FAITH (06/23/2016 13:28:QS system process) Next of Kin (06/23/2016 13:28:QS system process) Next of Kin Relationship: [place] (06/23/2016 13:28:QS system process) Date of : 1995 (06/23/2016 13:28:QS system process) Marital Status: Single (06/23/2016 13:28:QS system process) Sex: Female (06/23/2016 13:28:QS system process) Race: (06/23/2016 13:28:QS system process) Ethnicity: Non- or (06/23/2016 13:28:QS system process) Oriental Orthodox: Anglican (06/23/2016 13:28:QS system process) FOB Involved: Yes (08/19/2016 01:04:Sheryl Spain RN) DRUG AND ALCOHOL USE Alcohol: No (08/19/2016 01:04:Sheryl Spain RN) Cigarettes: Current Everyday Smoker. [id number] (08/19/2016 01:04:Sheryl Spain RN) Average Cigarettes Smoked: > 10 per day (08/19/2016 01:04:Sheryl Spain RN) Advised to Stop Smoking: Yes (08/19/2016 01:04:Sheryl Spain RN) Marijuana: No (08/19/2016 01:04:Sheryl Spain RN) Cocaine: No (08/19/2016 01:04:Sheryl Spain RN) Other Illicit Drugs: No (08/19/2016 01:04:Sheryl Spain RN) VACCINE HISTORY Influenza Vaccine: No (08/19/2016 01:04:Sheryl Spain RN) Pneumococcal Vaccine: No (08/19/2016 01:04:Sheryl Spain RN) Tetanus Vaccine: No (08/19/2016 01:04:Sheryl Spain RN) Tdap Vaccine: No (08/19/2016 01:04:Sheryl Spain RN) Hepatitis B Vaccine: No (08/19/2016 01:04:Sheryl Spain RN) Field Marketing Coordinator: [facility] (08/19/2016 01:04:Sheryl Spain RN) Feeding Preference: Formula (08/19/2016 01:04:Sheryl Spain RN) Benefit of Breast Feed Discussed: Yes (08/19/2016 01:04:Sheryl Spain RN) Circumcision: Yes (08/19/2016 01:04:Sheryl Spain RN) Classes Attended: No (08/19/2016 01:04:Sheryl Spain RN) Tubal Ligation: No (08/19/2016 01:04:Sheryl Spain RN) Tubal Authorization Signed: N/A (08/19/2016 01:04:Sheryl Spain RN) Consent: N/A (08/19/2016 01:04:Sheryl Spain RN) Consent Signed: N/A (08/19/2016 01:04:Sheryl Spain RN) Pain Management Plans: Epidural (08/19/2016 01:04:Sheryl Spain RN) Plans for Labor and Delivery: None (08/19/2016 01:04:Sheryl Spain RN) Support Person: Daryn Rasmussen (08/19/2016 01:04:Sheryl Spain RN) Support Person Relationship: Significant Other (08/19/2016 01:04:Sheryl Spain RN) Cultural/Spritual Practice: No (08/19/2016 01:04:Sheryl Spain RN) Spir/Cult Dietary Needs: No (08/19/2016 01:04:Sheryl Spain RN) LIVING SITUATION/DISCHARGE PLAN Living Arrangements: House (08/19/2016 01:04:Sheryl Spain RN) Adequate Access to:: Electric; Heat; Refrigeration; Plumbing/Running water; Phone; Transportation (08/19/2016 01:04:Sheryl Spain RN) WIC Program: Yes (08/19/2016 01:04:Sheryl Spain RN) 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 Person: Daryn Rasmussen (08/19/2016 01:04:Sheryl Spain RN) Person to Help after Discharge: Daryn Rasmussen (08/19/2016 01:04:Sheryl Spain RN) Currently Using Commun Resources: Anais (08/19/2016 01:04:Sheryl Spain RN) Outside Agency/Title 1 Tutor: Anais (08/19/2016 01:04:Sheryl Spain RN) Car Seat for Discharge: No (08/19/2016 01:04:Sheryl Spain RN) Adoption Requested: No (08/19/2016 01:04:Sheryl Spain RN) Pt Contact w/infant Post : N/A (08/19/2016 01:04:Sheryl Spain RN) LABS Blood Type: A Positive (08/19/2016 01:04:Dinora Liriano RN) Antibody Screen: Negative (08/19/2016 01:04:Dinora Liriano RN) Rho(G) this : Not Applicable (08/19/2016 01:04:Dinora Liriano RN) Hemoglobin: 9.6 L (08/20/2016 07:05:QS system process) Hemoglobin: 10.3 L (08/19/2016 01:44:QS system process) Hematocrit: 28.9 L (08/20/2016 07:05:QS system process) Hematocrit: 30.7 L (08/19/2016 01:44:QS system process) MCV: 84 (08/20/2016 07:05:QS system process) MCV: 82 (08/19/2016 01:44:QS system process) Group Beta Strep: Positive (08/19/2016 01:04:Dinora Liriano RN) Gonorrhea: Negative (08/19/2016 01:04:Dinora Liriano RN) Chlamydia: Negative (08/19/2016 01:04:Dinora Liriano RN) RPR/VDRL: Nonreactive (08/19/2016 01:04:Dinora Liriano RN) HIV Results: Negative (08/19/2016 01:04:Dinora Liriano RN) Hepatitis B: Negative (08/19/2016 01:04:Dinora Liriano RN) Rubella: Immune (08/19/2016 01:04:Dinora Liriano RN) OB/PREVIOUS HISTORY Previous Procedures: Ultrasound; NST (08/19/2016 01:04:Sheryl Spain RN) Current Procedures: Ultrasound (08/19/2016 01:04:Sheryl Spain RN) History of Previous : No (08/19/2016 01:04:Sheryl Spain RN) History of Gestational Diabetes: No (08/19/2016 01:04:Sheryl Spain RN) History of PIH: No (08/19/2016 01:04:Sheryl Spain RN) History of Incompetent Cervix: No (08/19/2016 01:04:Sheryl Spain RN) History of Placenta Previa/Abrup: No (08/19/2016 01:04:Sheryl Spain RN) History of Macrosomia: No (08/19/2016 01:04:Sheryl Spain RN) History of IUGR: No (08/19/2016 01:04:Sheryl Spain RN) History of Hemorrhage: No (08/19/2016 01:04:Sheryl Spain RN) History of Loss/Stillborn: No (08/19/2016 01:04:Sheryl Spain RN) History of : No (08/19/2016 01:04:Sheryl Spain RN) History of D (Rh) Sensitization: No (08/19/2016 01:04:Sheryl Spain RN) History Recurrent Loss/Stillborn: No (08/19/2016 01:04:Sheryl Spain RN) History Depression/PP Depression: No (08/19/2016 01:04:Sheryl Spain RN) History of Uterine Anomaly/MARY: No (08/19/2016 01:04:Sheryl Spain RN) History of Infertility: No (08/19/2016 01:04:Sheryl Spain RN) History of ART Treatment: No (08/19/2016 01:04:Sheryl Spain RN) History of MARY: No (08/19/2016 01:04:Sheryl Spain RN) Comments Obstetrical History: G1 - 2016, , Girl G2 - Current (08/19/2016 01:04:Sheryl Spain RN) MEDICAL HISTORY Med Hx Diabetes: No (08/19/2016 01:04:Sheryl Spain RN) Med Hx Hypertension: No (08/19/2016 01:04:Sheryl Spain RN) Med Hx Heart Disease: No (08/19/2016 01:04:Sheryl Spain RN) Med Hx Autoimmune Disorder: No (08/19/2016 01:04:Sheryl Spain RN) Med Hx Kidney Disease/UTI: Yes (08/19/2016 01:04:Sheryl Spain RN) Med Hx Neurologic/Epilepsy: No (08/19/2016 01:04:Sheryl Spain RN) Med Hx Psychiatric Disorders: No (08/19/2016 01:04:Sheryl Spain RN) Med Hx Hepatitis/Liver Disease: No (08/19/2016 01:04:Sheryl Spain RN) Med Hx Varicosities/Phlebitis: No (08/19/2016 01:04:Sheryl Spain RN) Med Hx Thyroid Dysfunction: No (08/19/2016 01:04:Sheryl Spain RN) Med Hx Trauma/Violence: No (08/19/2016 01:04:Sheryl Spain RN) Med Hx Blood Transfusion: No (08/19/2016 01:04:Sheryl Spain RN) Med Hx Pulmonary (Asthma,TB): No (08/19/2016 01:04:Sheryl Spain RN) Med Hx Breast: No (08/19/2016 01:04:Sheryl Spain RN) Med Hx HYPO DIPPER Surgery: No (08/19/2016 01:04:Sheryl Spain RN) Med Hx Hospitalization/Surgery: Yes (08/19/2016 01:04:Sheryl Spain RN) Med Hx Anesthetic Complications: No (08/19/2016 01:04:Sheryl Spain RN) Med Hx Abnormal Pap Smear: No (08/19/2016 01:04:Sheryl Spain RN) Other Medical Diseases: No (08/19/2016 01:04:Sheryl Spain RN) Med Hx Significant Family Hx: No (08/19/2016 01:04:Sheryl Spain RN) Details of Med/Surg Hx: UTI's, T_A (08/19/2016 01:04:Sheryl Spain RN) INFECTIOUS HISTORY Inf Hx Gonorrhea: No (08/19/2016 01:04:Sheryl Spain RN) Inf Hx Chlamydia: No (08/19/2016 01:04:Sheryl Spain RN) Inf Hx Syphilis: No (08/19/2016 01:04:Sheryl Spain RN) Inf Hx HIV/AIDS: No (08/19/2016 01:04:Sheryl Spain RN) Inf Hx Human Papilloma Virus: No (08/19/2016 01:04:Sheryl Spain RN) Inf Hx Pt/Partner Genital Herpes: No (08/19/2016 01:04:Sheryl Spain RN) Inf Hx Tuberculosis/Exposure: No (08/19/2016 01:04:Sheryl Spain RN) Inf Hx Hepatitis B,C: No (08/19/2016 01:04:Sheryl Spain RN) Inf Hx Rash or Viral Illness: No (08/19/2016 01:04:Sheryl Spain RN) GENETIC HISTORY Gen Hx Age >=35 at LATOYA: No (08/19/2016 01:04:Sheryl Spain RN) Gen Hx Thalassemia: No (08/19/2016 01:04:Sheryl Spain RN) Gen Hx Congenital Heart Defect: No (08/19/2016 01:04:Sheryl Spain RN) Gen Hx Neural Tube Defect: No (08/19/2016 01:04:Sheryl Spain RN) Gen Hx Down's Syndrome: No (08/19/2016 01:04:Sheryl Spain RN) Gen Hx Surjit-Sachs: No (08/19/2016 01:04:Sheryl Spain RN) Gen Hx Ulices: No (08/19/2016 01:04:Sheryl Spain RN) Gen Hx Familial Dysautonomia: No (08/19/2016 01:04:Sheryl Spain RN) Gen Hx Sickle Cell Disease/Trait: No (08/19/2016 01:04:Sheryl Spain RN) Gen Hx Hemophilia/Blood Disorder: No (08/19/2016 01:04:Sheryl Spain RN) Gen Hx Muscular Dystrophy: No (08/19/2016 01:04:Sheryl Spain RN) Gen Hx Cystic Fibrosis: No (08/19/2016 01:04:Sheryl Spain RN) Gen Hx [place] Chorea: No (08/19/2016 01:04:Sheryl Spain RN) Gen Hx Mental Retardation/Autism: No (08/19/2016 01:04:Sheryl Spain RN) Gen Hx Tested for Fragile X: No (08/19/2016 01:04:Sheyrl Spain RN) Gen Hx Other Inher/Chromosomal: No (08/19/2016 01:04:Sheryl Spain RN) Gen Hx Maternal Metabolic DO: No (08/19/2016 01:04:Sheryl Spain RN) Gen Hx Pt Father or FOB Defect: No (08/19/2016 01:04:Sheryl Spain RN) Gen Hx Other Genetic History: No (08/19/2016 01:04:Sheryl Spain RN) Gen Hx Drugs/Meds since LMP: Yes (08/19/2016 01:04:Sheryl Spain RN) Gen Hx Medications: Vitamins (08/19/2016 01:04:Sheryl Spain RN)
--- NOTE | 2016-08-21 22:45 | L&D Discharge Summary ---
OB Discharge Summary Datetime Report Generated by CPN: 08/21/2016 22:45 DISCHARGE DIAGNOSIS Gestation: 38.1 Number of Babies in Womb: 1 Parity: 1
--- NOTE | 2016-08-21 22:45 | L&D Current Admission ---
Current Admit Datetime Report Generated by CPN: 08/21/2016 22:45 ADMISSION INFORMATION Chief Complaint: Contractions (08/19/2016 01:10:Sheryl Spain, RN)
--- NOTE | 2016-08-22 04:45 | L&D Current Admission ---
Current Admit Datetime Report Generated by CPN: 08/22/2016 04:45 ADMISSION INFORMATION Chief Complaint: Contractions (08/19/2016 01:10:Sheryl Spain, RN)
--- NOTE | 2016-08-22 04:46 | L&D Discharge Summary ---
OB Discharge Summary Datetime Report Generated by CPN: 08/22/2016 04:45 DISCHARGE DIAGNOSIS Gestation: 38.1 Number of Babies in Womb: 1 Parity: 1
--- NOTE | 2016-08-22 04:46 | L&D General Admission ---
General Admit Datetime Report Generated by CPN: 08/22/2016 04:45 INFORMATION Patient Age: 20 (06/23/2016 13:28:QS system process) EDC: 09/01/2016 00:00 (08/19/2016 01:04:Sheryl Spain RN) : 2 (08/19/2016 01:04:Sheryl Spain RN) Para: 1 (08/19/2016 01:04:Sheryl Spain RN) Term: 1 (08/19/2016 01:04:Dinora Liriano RN) : 0 (08/19/2016 01:04:Dinora Liriano RN) Spontaneous Abortions: 0 (08/19/2016 01:04:Dinora Liriano RN) Induced Abortions: 0 (08/19/2016 01:04:Dinora Liriano RN) Livin (08/19/2016 01:04:Dinora Liriano RN) Cesareans: 0 (08/19/2016 01:04:Dinora Liriano RN) VBACs: 0 (08/19/2016 01:04:Dinora Liriano RN) Ectopic: 0 (08/19/2016 01:04:Dinora Liriano RN) Multiple Births: 0 (08/19/2016 01:04:Dinora Liriano RN) Baby, Number in Womb: 1 (08/19/2016 01:04:Dinora Liriano RN) CARE Primary Surgery Center Administrator: [facility] (08/19/2016 01:04:Sheryl Spain RN) Adequate Care: Yes (08/19/2016 01:04:Sheryl Spain RN) Height (in): 61 (08/21/2016 11:14:QS system process) Height (in): 61 (08/19/2016 09:19:QS system process) Height (in): 61 (08/19/2016 05:57:QS system process) Height (in): 61 (08/19/2016 03:34:QS system process) Height (in): 61 (08/19/2016 01:35:QS system process) Height (in): 61 (08/19/2016 01:32:QS system process) Height (in): 61 (08/19/2016 01:30:QS system process) ALLERGIES Medication Allergy: Yes (08/19/2016 01:04:Sheryl Spain RN) Medication Allergies: aspirin (04/16/2015) (06/23/2016 13:28:QS system process) Latex Allergy: No Latex Allergies (08/19/2016 01:04:Sheryl Spain RN) Food Allergies: N/A (08/19/2016 01:04:Sheryl Spain RN) Environmental Allergies: N/A (08/19/2016 01:04:Sheryl Spain RN) COMMUNICATION Primary Language: Scottish (08/19/2016 01:04:Sheryl Spain RN) Medical Tx Preferred Language: Scottish (08/19/2016 01:04:Sheryl Spain RN) DEMOGRAPHICS Address: [address] [place] [id number] (06/23/2016 13:28:QS system process) Zipcode: [phone] (06/23/2016 13:28:QS system process) Home (06/23/2016 13:28:QS system process) SSN: [id number] (06/23/2016 13:28:QS system process) Next of Kin Name: ALBERTO FAITH (06/23/2016 13:28:QS system process) Next of Kin (06/23/2016 13:28:QS system process) Next of Kin Relationship: [place] (06/23/2016 13:28:QS system process) Date of : 1995 (06/23/2016 13:28:QS system process) Marital Status: Single (06/23/2016 13:28:QS system process) Sex: Female (06/23/2016 13:28:QS system process) Race: (06/23/2016 13:28:QS system process) Ethnicity: Non- or (06/23/2016 13:28:QS system process) Uatsdin: Denominational (06/23/2016 13:28:QS system process) FOB Involved: Yes (08/19/2016 01:04:Sheryl Spain RN) DRUG AND ALCOHOL USE Alcohol: No (08/19/2016 01:04:Sheryl Spain RN) Cigarettes: Current Everyday Smoker. [id number] (08/19/2016 01:04:Sheryl Spain RN) Average Cigarettes Smoked: > 10 per day (08/19/2016 01:04:Sheryl Spain RN) Advised to Stop Smoking: Yes (08/19/2016 01:04:Sheryl Spain RN) Marijuana: No (08/19/2016 01:04:Sheryl Spain RN) Cocaine: No (08/19/2016 01:04:Sheryl Spain RN) Other Illicit Drugs: No (08/19/2016 01:04:Sheryl Spain RN) VACCINE HISTORY Influenza Vaccine: No (08/19/2016 01:04:Sheryl Spain RN) Pneumococcal Vaccine: No (08/19/2016 01:04:Sheryl Spain RN) Tetanus Vaccine: No (08/19/2016 01:04:Sheryl Spain RN) Tdap Vaccine: No (08/19/2016 01:04:Sheryl Spain RN) Hepatitis B Vaccine: No (08/19/2016 01:04:Sheryl Spain RN) Supervisor Unloading: [facility] (08/19/2016 01:04:Sheryl Spain RN) Feeding Preference: Formula (08/19/2016 01:04:Sheryl Spain RN) Benefit of Breast Feed Discussed: Yes (08/19/2016 01:04:Sheryl Spain RN) Circumcision: Yes (08/19/2016 01:04:Sheryl Spain RN) Classes Attended: No (08/19/2016 01:04:Sheryl Spain RN) Tubal Ligation: No (08/19/2016 01:04:Sheryl Spain RN) Tubal Authorization Signed: N/A (08/19/2016 01:04:Sheryl Spain RN) Consent: N/A (08/19/2016 01:04:Sheryl Spain RN) Consent Signed: N/A (08/19/2016 01:04:Sheryl Spain RN) Pain Management Plans: Epidural (08/19/2016 01:04:Sheryl Spain RN) Plans for Labor and Delivery: None (08/19/2016 01:04:Sheryl Spain RN) Support Person: Daryn Rasmussen (08/19/2016 01:04:Sheryl Spain RN) Support Person Relationship: Significant Other (08/19/2016 01:04:Sheryl Spain RN) Cultural/Spritual Practice: No (08/19/2016 01:04:Sheryl Spain RN) Spir/Cult Dietary Needs: No (08/19/2016 01:04:Sheryl Spain RN) LIVING SITUATION/DISCHARGE PLAN Living Arrangements: House (08/19/2016 01:04:Sheryl Spain RN) Adequate Access to:: Electric; Heat; Refrigeration; Plumbing/Running water; Phone; Transportation (08/19/2016 01:04:Sheryl Spain RN) WIC Program: Yes (08/19/2016 01:04:Sheryl Spain RN) 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: Daryn Rasmussen (08/19/2016 01:04:Sheryl Spain RN) Person to Help after Discharge: Daryn Rasmussen (08/19/2016 01:04:Sheryl Spain RN) Currently Using Commun Resources: Anais (08/19/2016 01:04:Sheryl Spain RN) Outside Agency/Body Rolling Machine Tender: Anais (08/19/2016 01:04:Sheryl Spain RN) Car Seat for Discharge: No (08/19/2016 01:04:Sheryl Spain RN) Adoption Requested: No (08/19/2016 01:04:Sheryl Spain RN) Pt Contact w/infant Post : N/A (08/19/2016 01:04:Sheryl Spain RN) LABS Blood Type: A Positive (08/19/2016 01:04:Dinora Liriano RN) Antibody Screen: Negative (08/19/2016 01:04:Dinora Liriano RN) Rho(G) this : Not Applicable (08/19/2016 01:04:Dinora Liriano RN) Hemoglobin: 9.6 L (08/20/2016 07:05:QS system process) Hemoglobin: 10.3 L (08/19/2016 01:44:QS system process) Hematocrit: 28.9 L (08/20/2016 07:05:QS system process) Hematocrit: 30.7 L (08/19/2016 01:44:QS system process) MCV: 84 (08/20/2016 07:05:QS system process) MCV: 82 (08/19/2016 01:44:QS system process) Group Beta Strep: Positive (08/19/2016 01:04:Dinora Liriano RN) Gonorrhea: Negative (08/19/2016 01:04:Dinora Liriano RN) Chlamydia: Negative (08/19/2016 01:04:Dinora Liriano RN) RPR/VDRL: Nonreactive (08/19/2016 01:04:Dinora Liriano RN) HIV Results: Negative (08/19/2016 01:04:Dinora Liriano RN) Hepatitis B: Negative (08/19/2016 01:04:Dinora Liriano RN) Rubella: Immune (08/19/2016 01:04:Dinora Liriano RN) OB/PREVIOUS HISTORY Previous Procedures: Ultrasound; NST (08/19/2016 01:04:Sheryl Spain RN) Current Procedures: Ultrasound (08/19/2016 01:04:Sheryl Spain RN) History of Previous : No (08/19/2016 01:04:Sheryl Spain RN) History of Gestational Diabetes: No (08/19/2016 01:04:Sheryl Spain RN) History of PIH: No (08/19/2016 01:04:Sheryl Spain RN) History of Incompetent Cervix: No (08/19/2016 01:04:Sheryl Spain RN) History of Placenta Previa/Abrup: No (08/19/2016 01:04:Sheryl Spain RN) History of Macrosomia: No (08/19/2016 01:04:Sheryl Spain RN) History of IUGR: No (08/19/2016 01:04:Sheryl Spain RN) History of Hemorrhage: No (08/19/2016 01:04:Sheryl Spain RN) History of Loss/Stillborn: No (08/19/2016 01:04:Sheryl Spain RN) History of : No (08/19/2016 01:04:Sheryl Spain RN) History of D (Rh) Sensitization: No (08/19/2016 01:04:Sheryl Spain RN) History Recurrent Loss/Stillborn: No (08/19/2016 01:04:Sheryl Spain RN) History Depression/PP Depression: No (08/19/2016 01:04:Sheryl Spain RN) History of Uterine Anomaly/MARY: No (08/19/2016 01:04:Sheryl Spain RN) History of Infertility: No (08/19/2016 01:04:Sheryl Spain RN) History of ART Treatment: No (08/19/2016 01:04:Sheryl Spain RN) History of MARY: No (08/19/2016 01:04:Sheryl Spain RN) Comments Obstetrical History: G1 - 2016, , Girl G2 - Current (08/19/2016 01:04:Sheryl Spain RN) MEDICAL HISTORY Med Hx Diabetes: No (08/19/2016 01:04:Sheryl Spain RN) Med Hx Hypertension: No (08/19/2016 01:04:Sheryl Spain RN) Med Hx Heart Disease: No (08/19/2016 01:04:Sheryl Spain RN) Med Hx Autoimmune Disorder: No (08/19/2016 01:04:Sheryl Spain RN) Med Hx Kidney Disease/UTI: Yes (08/19/2016 01:04:Sheryl Spain RN) Med Hx Neurologic/Epilepsy: No (08/19/2016 01:04:Sheryl Spain RN) Med Hx Psychiatric Disorders: No (08/19/2016 01:04:Sheryl Spain RN) Med Hx Hepatitis/Liver Disease: No (08/19/2016 01:04:Sheryl Spain RN) Med Hx Varicosities/Phlebitis: No (08/19/2016 01:04:Sheryl Spain RN) Med Hx Thyroid Dysfunction: No (08/19/2016 01:04:Sheryl Spain RN) Med Hx Trauma/Violence: No (08/19/2016 01:04:Sheryl Spain RN) Med Hx Blood Transfusion: No (08/19/2016 01:04:Sheryl Spain RN) Med Hx Pulmonary (Asthma,TB): No (08/19/2016 01:04:Sheryl Spain RN) Med Hx Breast: No (08/19/2016 01:04:Sheryl Spain RN) Med Hx BEADER Surgery: No (08/19/2016 01:04:Sheryl Spain RN) Med Hx Hospitalization/Surgery: Yes (08/19/2016 01:04:Sheryl Spain RN) Med Hx Anesthetic Complications: No (08/19/2016 01:04:Sheryl Spain RN) Med Hx Abnormal Pap Smear: No (08/19/2016 01:04:Sheryl Spain RN) Other Medical Diseases: No (08/19/2016 01:04:Sheryl Spain RN) Med Hx Significant Family Hx: No (08/19/2016 01:04:Sheryl Spain RN) Details of Med/Surg Hx: UTI's, T_A (08/19/2016 01:04:Sheryl Spain RN) INFECTIOUS HISTORY Inf Hx Gonorrhea: No (08/19/2016 01:04:Sheryl Spain RN) Inf Hx Chlamydia: No (08/19/2016 01:04:Sheryl Spain RN) Inf Hx Syphilis: No (08/19/2016 01:04:Sheryl Spain RN) Inf Hx HIV/AIDS: No (08/19/2016 01:04:Sheryl Spain RN) Inf Hx Human Papilloma Virus: No (08/19/2016 01:04:Sheryl Spain RN) Inf Hx Pt/Partner Genital Herpes: No (08/19/2016 01:04:Sheryl Spain RN) Inf Hx Tuberculosis/Exposure: No (08/19/2016 01:04:Sheryl Spain RN) Inf Hx Hepatitis B,C: No (08/19/2016 01:04:Sheryl Spain RN) Inf Hx Rash or Viral Illness: No (08/19/2016 01:04:Sheryl Spain RN) GENETIC HISTORY Gen Hx Age >=35 at LATOYA: No (08/19/2016 01:04:Sheryl Spain RN) Gen Hx Thalassemia: No (08/19/2016 01:04:Sheryl Spain RN) Gen Hx Congenital Heart Defect: No (08/19/2016 01:04:Sheryl Spain RN) Gen Hx Neural Tube Defect: No (08/19/2016 01:04:Sheryl Spain RN) Gen Hx Down's Syndrome: No (08/19/2016 01:04:Sheryl Spain RN) Gen Hx Surjit-Sachs: No (08/19/2016 01:04:Sheryl Spain RN) Gen Hx Ulices: No (08/19/2016 01:04:Sheryl Spain RN) Gen Hx Familial Dysautonomia: No (08/19/2016 01:04:Sheryl Spain RN) Gen Hx Sickle Cell Disease/Trait: No (08/19/2016 01:04:Sheryl Spain RN) Gen Hx Hemophilia/Blood Disorder: No (08/19/2016 01:04:Sheryl Spain RN) Gen Hx Muscular Dystrophy: No (08/19/2016 01:04:Sheryl Spain RN) Gen Hx Cystic Fibrosis: No (08/19/2016 01:04:Sheryl Spain RN) Gen Hx Huntingtons Chorea: No (08/19/2016 01:04:Sheryl Spain RN) Gen Hx Mental Retardation/Autism: No (08/19/2016 01:04:Sheryl Spain RN) Gen Hx Tested for Fragile X: No (08/19/2016 01:04:Sheryl Spain RN) Gen Hx Other Inher/Chromosomal: No (08/19/2016 01:04:Sheryl Spain RN) Gen Hx Maternal Metabolic DO: No (08/19/2016 01:04:Sheryl Spain RN) Gen Hx Pt Father or FOB Defect: No (08/19/2016 01:04:Sheryl Spain RN) Gen Hx Other Genetic History: No (08/19/2016 01:04:Sheryl Spain RN) Gen Hx Drugs/Meds since LMP: Yes (08/19/2016 01:04:Sheryl Spain RN) Gen Hx Medications: Vitamins (08/19/2016 01:04:Sheryl Spain RN)
--- NOTE | 2016-08-22 04:46 | L&D Admission Assessment ---
LD ADM ASMT Datetime Report Generated by [facility]: 08/22/2016 04:45 Weight (lb): 293 (08/21/2016 11:14:QS system process) Weight (kg): 133.2 (08/21/2016 11:14:QS system process) BMI: 55.4 (08/21/2016 11:14:QS system process)
--- NOTE | 2016-08-22 10:45 | L&D General Admission ---
General Admit Datetime Report Generated by CPN: 08/22/2016 10:45 INFORMATION Patient Age: 20 (06/23/2016 13:28:QS system process) EDC: 09/01/2016 00:00 (08/19/2016 01:04:Sheryl Spain RN) : 2 (08/19/2016 01:04:Sheryl Spain RN) Para: 1 (08/19/2016 01:04:Sheryl Spain RN) Term: 1 (08/19/2016 01:04:Dinora Liriano RN) : 0 (08/19/2016 01:04:Dinora Liriano RN) Spontaneous Abortions: 0 (08/19/2016 01:04:Dinora Liriano RN) Induced Abortions: 0 (08/19/2016 01:04:Dinora Liriano RN) Livin (08/19/2016 01:04:Dinora Liriano RN) Cesareans: 0 (08/19/2016 01:04:Dinora Liriano RN) VBACs: 0 (08/19/2016 01:04:Dinora Liriano RN) Ectopic: 0 (08/19/2016 01:04:Dinora Liriano RN) Multiple Births: 0 (08/19/2016 01:04:Dinora Liriano RN) Baby, Number in Womb: 1 (08/19/2016 01:04:Dinora Liriano RN) 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: [facility] (08/19/2016 01:04:Sheryl Spain RN) Adequate Care: Yes (08/19/2016 01:04:Sheryl Spain RN) Height (in): 61 (08/21/2016 11:14:QS system process) Height (in): 61 (08/19/2016 09:19:QS system process) Height (in): 61 (08/19/2016 05:57:QS system process) Height (in): 61 (08/19/2016 03:34:QS system process) Height (in): 61 (08/19/2016 01:35:QS system process) Height (in): 61 (08/19/2016 01:32:QS system process) Height (in): 61 (08/19/2016 01:30:QS system process) ALLERGIES Medication Allergy: Yes (08/19/2016 01:04:Sheryl Spain RN) Medication Allergies: aspirin (04/16/2015) (06/23/2016 13:28:QS system process) Latex Allergy: No Latex Allergies (08/19/2016 01:04:Sheryl Spain RN) Food Allergies: N/A (08/19/2016 01:04:Sheryl Spain RN) Environmental Allergies: N/A (08/19/2016 01:04:Sheryl Spain RN) COMMUNICATION Primary Language: Faroese (08/19/2016 01:04:Sheryl Spain RN) Medical Tx Preferred Language: Faroese (08/19/2016 01:04:Sheryl Spain RN) DEMOGRAPHICS Address: [address] [place] [id number] (06/23/2016 13:28:QS system process) Zipcode: [address] (06/23/2016 13:28:QS system process) Home (06/23/2016 13:28:QS system process) SSN: [id number] (06/23/2016 13:28:QS system process) Next of Kin Name: ALBERTO FAITH (06/23/2016 13:28:QS system process) Next of Kin (06/23/2016 13:28:QS system process) Next of Kin Relationship: MO (06/23/2016 13:28:QS system process) Date of : 1995 (06/23/2016 13:28:QS system process) Marital Status: Single (06/23/2016 13:28:QS system process) Sex: Female (06/23/2016 13:28:QS system process) Race: (06/23/2016 13:28:QS system process) Ethnicity: Non- or (06/23/2016 13:28:QS system process) Confucianist: Jain (06/23/2016 13:28:QS system process) FOB Involved: Yes (08/19/2016 01:04:Sheryl Spain RN) DRUG AND ALCOHOL USE Alcohol: No (08/19/2016 01:04:Sheryl Spain RN) Cigarettes: Current Everyday Smoker. [id number] (08/19/2016 01:04:Sheryl Spain RN) Average Cigarettes Smoked: > 10 per day (08/19/2016 01:04:Sheryl Spain RN) Advised to Stop Smoking: Yes (08/19/2016 01:04:Sheryl Spain RN) Marijuana: No (08/19/2016 01:04:Sheryl Spain RN) Cocaine: No (08/19/2016 01:04:Sheryl Spain RN) Other Illicit Drugs: No (08/19/2016 01:04:Sheryl Spain RN) VACCINE HISTORY Influenza Vaccine: No (08/19/2016 01:04:Sheryl Spain RN) Pneumococcal Vaccine: No (08/19/2016 01:04:Sheryl Spain RN) Tetanus Vaccine: No (08/19/2016 01:04:Sheryl Spain RN) Tdap Vaccine: No (08/19/2016 01:04:Sheryl Spain RN) Hepatitis B Vaccine: No (08/19/2016 01:04:Sheryl Spain RN) Strap Machine Operator Automatic: [facility] (08/19/2016 01:04:Sheryl Spain RN) Feeding Preference: Formula (08/19/2016 01:04:Sheryl Spain RN) Benefit of Breast Feed Discussed: Yes (08/19/2016 01:04:Sheryl Spain RN) Circumcision: Yes (08/19/2016 01:04:Sheryl Spain RN) Classes Attended: No (08/19/2016 01:04:Sheryl Spain RN) Tubal Ligation: No (08/19/2016 01:04:Sheryl Spain RN) Tubal Authorization Signed: N/A (08/19/2016 01:04:Sheryl Spain RN) Consent: N/A (08/19/2016 01:04:Sheryl Spain RN) Consent Signed: N/A (08/19/2016 01:04:Sheryl Spain RN) Pain Management Plans: Epidural (08/19/2016 01:04:Sheryl Spain RN) Plans for Labor and Delivery: None (08/19/2016 01:04:Sheryl Spain RN) Support Person: Daryn Rasmussen (08/19/2016 01:04:Sheryl Spain RN) Support Person Relationship: Significant Other (08/19/2016 01:04:Sheryl Spain RN) Cultural/Spritual Practice: No (08/19/2016 01:04:Sheryl Spain RN) Spir/Cult Dietary Needs: No (08/19/2016 01:04:Sheryl Spain RN) LIVING SITUATION/DISCHARGE PLAN Living Arrangements: House (08/19/2016 01:04:Sheryl Spain RN) Adequate Access to:: Electric; Heat; Refrigeration; Plumbing/Running water; Phone; Transportation (08/19/2016 01:04:Sheryl Spain RN) WIC Program: Yes (08/19/2016 01:04:Sheryl Spain RN) Discharge Pattern Layout Worker Person: Daryn Rasmussen (08/19/2016 01:04:Sheryl Spain RN) Person to Help after Discharge: Daryn Rasmussen (08/19/2016 01:04:Sheryl Spain RN) Currently Using Commun Resources: [facility] (08/19/2016 01:04:Sheryl Spain RN) Outside Agency/Delimber Operator: [employer] (08/19/2016 01:04:Sheryl Spain RN) Car Seat for Discharge: No (08/19/2016 01:04:Sheryl Spain RN) Adoption Requested: No (08/19/2016 01:04:Sheryl Spain RN) Pt Contact w/infant Post : N/A (08/19/2016 01:04:Sheryl Spain RN) LABS Blood Type: A Positive (08/19/2016 01:04:Dinora Liriano RN) Antibody Screen: Negative (08/19/2016 01:04:Dinora Liriano RN) Rho(G) this : Not Applicable (08/19/2016 01:04:Dinora Liriano RN) Hemoglobin: 9.6 L (08/20/2016 07:05:QS system process) Hemoglobin: 10.3 L (08/19/2016 01:44:QS system process) Hematocrit: 28.9 L (08/20/2016 07:05:QS system process) Hematocrit: 30.7 L (08/19/2016 01:44:QS system process) MCV: 84 (08/20/2016 07:05:QS system process) MCV: 82 (08/19/2016 01:44:QS system process) Group Beta Strep: Positive (08/19/2016 01:04:Dinora Liriano RN) Gonorrhea: Negative (08/19/2016 01:04:Dinora Liriano RN) Chlamydia: Negative (08/19/2016 01:04:Dinora Liriano RN) RPR/VDRL: Nonreactive (08/19/2016 01:04:Dinora Liriano RN) HIV Results: Negative (08/19/2016 01:04:Dinora Liriano RN) Hepatitis B: Negative (08/19/2016 01:04:Dinora Liriano RN) Rubella: Immune (08/19/2016 01:04:Dinora Liriano RN) OB/PREVIOUS HISTORY Previous Procedures: Ultrasound; NST (08/19/2016 01:04:Sheryl Spain RN) Current Procedures: Ultrasound (08/19/2016 01:04:Sheryl Spain RN) History of Previous : No (08/19/2016 01:04:Sheryl Spain RN) History of Gestational Diabetes: No (08/19/2016 01:04:Sheryl Spain RN) History of PIH: No (08/19/2016 01:04:Sheryl Spain RN) History of Incompetent Cervix: No (08/19/2016 01:04:Sheryl Spain RN) History of Placenta Previa/Abrup: No (08/19/2016 01:04:Sheryl Spain RN) History of Macrosomia: No (08/19/2016 01:04:Sheryl Spain RN) History of IUGR: No (08/19/2016 01:04:Sheryl Spain RN) History of Hemorrhage: No (08/19/2016 01:04:Sheryl Spain RN) History of Loss/Stillborn: No (08/19/2016 01:04:Sheryl Spain RN) History of : No (08/19/2016 01:04:Sheryl Spain RN) History of D (Rh) Sensitization: No (08/19/2016 01:04:Sheryl Spain RN) History Recurrent Loss/Stillborn: No (08/19/2016 01:04:Sheryl Spain RN) History Depression/PP Depression: No (08/19/2016 01:04:Sheryl Spain RN) History of Uterine Anomaly/MARY: No (08/19/2016 01:04:Sheryl Spain RN) History of Infertility: No (08/19/2016 01:04:Sheryl Spain RN) History of ART Treatment: No (08/19/2016 01:04:Sheryl Spain RN) History of MARY: No (08/19/2016 01:04:Shreyl Spain RN) Comments Obstetrical History: G1 - 2016, , Girl G2 - Current (08/19/2016 01:04:Sheryl Spain RN) MEDICAL HISTORY Med Hx Diabetes: No (08/19/2016 01:04:Sheryl Spain RN) Med Hx Hypertension: No (08/19/2016 01:04:Sheryl Spain RN) Med Hx Heart Disease: No (08/19/2016 01:04:Sheryl Spain RN) Med Hx Autoimmune Disorder: No (08/19/2016 01:04:Sheryl Spain RN) Med Hx Kidney Disease/UTI: Yes (08/19/2016 01:04:Sheryl Spain RN) Med Hx Neurologic/Epilepsy: No (08/19/2016 01:04:Sheryl Spain RN) Med Hx Psychiatric Disorders: No (08/19/2016 01:04:Sheryl Spain RN) Med Hx Hepatitis/Liver Disease: No (08/19/2016 01:04:Sheryl Spain RN) Med Hx Varicosities/Phlebitis: No (08/19/2016 01:04:Sheryl Spain RN) Med Hx Thyroid Dysfunction: No (08/19/2016 01:04:Sheryl Spain RN) Med Hx Trauma/Violence: No (08/19/2016 01:04:Sheryl Spain RN) Med Hx Blood Transfusion: No (08/19/2016 01:04:Sheryl Spain RN) Med Hx Pulmonary (Asthma,TB): No (08/19/2016 01:04:Sheryl Spain RN) Med Hx Breast: No (08/19/2016 01:04:Sheryl Spain RN) Med Hx HOUSEPERSON Surgery: No (08/19/2016 01:04:Sheryl Spain RN) Med Hx Hospitalization/Surgery: Yes (08/19/2016 01:04:Sheryl Spain RN) Med Hx Anesthetic Complications: No (08/19/2016 01:04:Sheryl Spain RN) Med Hx Abnormal Pap Smear: No (08/19/2016 01:04:Sheryl Spain RN) Other Medical Diseases: No (08/19/2016 01:04:Sheryl Spain RN) Med Hx Significant Family Hx: No (08/19/2016 01:04:Sheryl Spain RN) Details of Med/Surg Hx: UTI's, T_A (08/19/2016 01:04:Sheryl Spain RN) INFECTIOUS HISTORY Inf Hx Gonorrhea: No (08/19/2016 01:04:Sheryl Spain RN) Inf Hx Chlamydia: No (08/19/2016 01:04:Sheryl Spain RN) Inf Hx Syphilis: No (08/19/2016 01:04:Sheryl Spain RN) Inf Hx HIV/AIDS: No (08/19/2016 01:04:Sheryl Spain RN) Inf Hx Human Papilloma Virus: No (08/19/2016 01:04:Sheryl Spain RN) Inf Hx Pt/Partner Genital Herpes: No (08/19/2016 01:04:Sheryl Spain RN) Inf Hx Tuberculosis/Exposure: No (08/19/2016 01:04:Sheryl Spain RN) Inf Hx Hepatitis B,C: No (08/19/2016 01:04:Sheryl Spain RN) Inf Hx Rash or Viral Illness: No (08/19/2016 01:04:Sheryl Spain RN) GENETIC HISTORY Gen Hx Age >=35 at LATOYA: No (08/19/2016 01:04:Sheryl Spain RN) Gen Hx Thalassemia: No (08/19/2016 01:04:Sheryl Spain RN) Gen Hx Congenital Heart Defect: No (08/19/2016 01:04:Sheryl Spain RN) Gen Hx Neural Tube Defect: No (08/19/2016 01:04:Sheryl Spain RN) Gen Hx Down's Syndrome: No (08/19/2016 01:04:Sheryl Spain RN) Gen Hx Surjit-Sachs: No (08/19/2016 01:04:Sheryl Spain RN) Gen Hx Ulices: No (08/19/2016 01:04:Sheryl Spain RN) Gen Hx Familial Dysautonomia: No (08/19/2016 01:04:Sheryl Spain RN) Gen Hx Sickle Cell Disease/Trait: No (08/19/2016 01:04:Sheryl Spain RN) Gen Hx Hemophilia/Blood Disorder: No (08/19/2016 01:04:Sheryl Spain RN) Gen Hx Muscular Dystrophy: No (08/19/2016 01:04:Sheryl Spain RN) Gen Hx Cystic Fibrosis: No (08/19/2016 01:04:Sheryl Spain RN) Gen Hx Huntingtons Chorea: No (08/19/2016 01:04:Sheryl Spain RN) Gen Hx Mental Retardation/Autism: No (08/19/2016 01:04:Sheryl Spain RN) Gen Hx Tested for Fragile X: No (08/19/2016 01:04:Sheryl Spain RN) Gen Hx Other Inher/Chromosomal: No (08/19/2016 01:04:Sheryl Spain RN) Gen Hx Maternal Metabolic DO: No (08/19/2016 01:04:Sheryl Spain RN) Gen Hx Pt Father or FOB Defect: No (08/19/2016 01:04:Sheryl Spain RN) Gen Hx Other Genetic History: No (08/19/2016 01:04:Sheryl Spain RN) Gen Hx Drugs/Meds since LMP: Yes (08/19/2016 01:04:Sheryl Spain RN) Gen Hx Medications: Vitamins (08/19/2016 01:04:Sheryl Spain RN)
--- NOTE | 2016-08-22 10:45 | L&D Admission Assessment ---
LD ADM ASMT Datetime Report Generated by N: 08/22/2016 10:45 Weight (lb): 293 (08/21/2016 11:14:QS system process) Weight (kg): 133.2 (08/21/2016 11:14:QS system process) BMI: 55.4 (08/21/2016 11:14:QS system process)
--- NOTE | 2016-08-22 10:45 | L&D Discharge Summary ---
OB Discharge Summary Datetime Report Generated by CPN: 08/22/2016 10:45 DISCHARGE DIAGNOSIS Gestation: 38.1 Number of Babies in Womb: 1 Parity: 1
--- NOTE | 2016-08-22 10:45 | L&D Current Admission ---
Current Admit Datetime Report Generated by CPN: 08/22/2016 10:45 ADMISSION INFORMATION Chief Complaint: Contractions (08/19/2016 01:10:Sheryl Spain, RN)
--- NOTE | 2016-08-22 16:45 | L&D Discharge Summary ---
OB Discharge Summary Datetime Report Generated by CPN: 08/22/2016 16:45 DISCHARGE DIAGNOSIS Gestation: 38.1 Number of Babies in Womb: 1 Parity: 1
--- NOTE | 2016-08-22 22:45 | L&D Discharge Summary ---
OB Discharge Summary Datetime Report Generated by CPN: 08/22/2016 22:45 DISCHARGE DIAGNOSIS Gestation: 38.1 Number of Babies in Womb: 1 Parity: 1
--- NOTE | 2016-08-23 04:45 | L&D Discharge Summary ---
OB Discharge Summary Datetime Report Generated by CPN: 08/23/2016 04:45 DISCHARGE DIAGNOSIS Gestation: 38.1 Number of Babies in Womb: 1 Parity: 1
--- NOTE | 2016-08-23 10:46 | L&D Discharge Summary ---
OB Discharge Summary Datetime Report Generated by CPN: 08/23/2016 10:45 DISCHARGE DIAGNOSIS Gestation: 38.1 Number of Babies in Womb: 1 Parity: 1
--- NOTE | 2016-08-23 16:46 | L&D Discharge Summary ---
OB Discharge Summary Datetime Report Generated by CPN: 08/23/2016 16:45 DISCHARGE DIAGNOSIS Gestation: 38.1 Number of Babies in Womb: 1 Parity: 1
--- NOTE | 2016-08-23 22:46 | L&D Discharge Summary ---
OB Discharge Summary Datetime Report Generated by CPN: 08/23/2016 22:45 DISCHARGE DIAGNOSIS Gestation: 38.1 Number of Babies in Womb: 1 Parity: 1
--- NOTE | 2016-08-24 04:46 | L&D Discharge Summary ---
OB Discharge Summary Datetime Report Generated by CPN: 08/24/2016 04:45 DISCHARGE DIAGNOSIS Gestation: 38.1 Number of Babies in Womb: 1 Parity: 1
--- NOTE | 2016-08-24 10:46 | L&D Discharge Summary ---
OB Discharge Summary Datetime Report Generated by CPN: 08/24/2016 10:45 DISCHARGE DIAGNOSIS Gestation: 38.1 Number of Babies in Womb: 1 Parity: 1
--- NOTE | 2016-08-24 16:46 | L&D Discharge Summary ---
OB Discharge Summary Datetime Report Generated by CPN: 08/24/2016 16:45 DISCHARGE DIAGNOSIS Gestation: 38.1 Number of Babies in Womb: 1 Parity: 1
--- NOTE | 2016-08-24 22:46 | L&D Discharge Summary ---
OB Discharge Summary Datetime Report Generated by CPN: 08/24/2016 22:45 DISCHARGE DIAGNOSIS Gestation: 38.1 Number of Babies in Womb: 1 Parity: 1
--- NOTE | 2016-08-25 04:46 | L&D Discharge Summary ---
OB Discharge Summary Datetime Report Generated by CPN: 08/25/2016 04:45 DISCHARGE DIAGNOSIS Gestation: 38.1 Number of Babies in Womb: 1 Parity: 1
--- NOTE | 2016-08-25 10:46 | L&D Discharge Summary ---
OB Discharge Summary Datetime Report Generated by CPN: 08/25/2016 10:45 DISCHARGE DIAGNOSIS Gestation: 38.1 Number of Babies in Womb: 1 Parity: 1
--- NOTE | 2016-08-25 16:46 | L&D Discharge Summary ---
OB Discharge Summary Datetime Report Generated by CPN: 08/25/2016 16:45 DISCHARGE DIAGNOSIS Gestation: 38.1 Number of Babies in Womb: 1 Parity: 1
--- NOTE | 2016-08-25 22:45 | L&D Discharge Summary ---
OB Discharge Summary Datetime Report Generated by CPN: 08/25/2016 22:45 DISCHARGE DIAGNOSIS Gestation: 38.1 Number of Babies in Womb: 1 Parity: 1
--- NOTE | 2016-08-26 04:46 | L&D Discharge Summary ---
OB Discharge Summary Datetime Report Generated by CPN: 08/26/2016 04:45 DISCHARGE DIAGNOSIS Gestation: 38.1 Number of Babies in Womb: 1 Parity: 1
--- NOTE | 2016-08-26 10:46 | L&D Discharge Summary ---
OB Discharge Summary Datetime Report Generated by CPN: 08/26/2016 10:45 DISCHARGE DIAGNOSIS Gestation: 38.1 Number of Babies in Womb: 1 Parity: 1
--- NOTE | 2016-08-26 16:46 | L&D Discharge Summary ---
OB Discharge Summary Datetime Report Generated by CPN: 08/26/2016 16:45 DISCHARGE DIAGNOSIS Gestation: 38.1 Number of Babies in Womb: 1 Parity: 1
--- NOTE | 2016-08-26 22:46 | L&D Discharge Summary ---
OB Discharge Summary Datetime Report Generated by CPN: 08/26/2016 22:45 DISCHARGE DIAGNOSIS Gestation: 38.1 Number of Babies in Womb: 1 Parity: 1
== END 2016-08-21 13:10 | disposition home or self-care (01) | DRG 775 ==
LOC: LC 00:36 → LR 01:25 → 2S 05:57 → 2N 08-20 19:27
PROVIDERS: ADMIT Obstetrics & Gynecology; ATTEND Obstetrics & Gynecology
PROC: 10E0XZZ Delivery of Products of Conception, External Approach (ICD-10-PCS; principal; 2016-08-19)
DX: O99.824 Streptococcus B carrier state complicating childbirth (principal); O99.334 Smoking (tobacco) complicating childbirth; F17.210 Nicotine dependence, cigarettes, uncomplicated; O62.3 Precipitate labor; Z3A.38 38 weeks gestation of pregnancy; Z37.0 Single live birth
CPT/HCPCS: 36415; 80307; 81005; 84112; 85025; 85027; 86592; 86850; 86900; 86901; J2540; J2590; J3490

== ENCOUNTER 2017-01-24 17:11 | Emergency (ER) | payer MEDICAID ==
[2017-01-24 17:19] VITALS: BP 133/88
--- NOTE | 2017-01-24 17:30 | ER Document Report ---
HPI - HPI Pain Level: 4 Notes: Patient is a 21-year-old female who presents the ED complaining of left knee pain and left ankle pain status post twist injuries about 1-1/2-2 weeks ago. Patient states that the pain does not radiate. Pt denies any knee locking or giving out. Patient states that the knee pain is medial and her ankle pain is anterolateral. Patient is still able to ambulate, but is favoring the left knee and the left ankle. She has not been placing any sjpz-nos-vskjqwn meds, ice, or heat. She has not seen anyone prior for these issues. She denies any swelling or bruising. Denies any other significant past medical history. Denies any headache, fever, neck pain, URI, sore throat, chest pain, palpitations, syncope, cough, shortness of breath, wheeze, dyspnea, abdominal pain, nausea/vomiting/diarrhea, or rash. Patient denies any smoking or drug use. - ROS Notes: REVIEW OF SYSTEMS: CONSTITUTIONAL : Denies fever, chills, or sweats. Denies recent illness. EENT: Denies eye, ear, throat, or mouth pain or symptoms. Denies nasal or sinus congestion or discharge. Denies throat, tongue, or mouth swelling or difficulty swallowing. CARDIOVASCULAR: Denies chest pain. Denies palpitations or racing or irregular heart beat. Denies ankle edema. RESPIRATORY: Denies cough, cold, or chest congestion. Denies shortness of breath, difficulty breathing, or wheezing. GASTROINTESTINAL: Denies abdominal pain or distention. Denies nausea, vomiting , or diarrhea. Denies blood in vomitus, stools, or per rectum. Denies black, tarry stools. Denies constipation. GENITOURINARY: Denies difficulty urinating, painful urination, burning, frequency, blood in urine, or discharge. MUSCULOSKELETAL: see hpi SKIN: Denies rash, lesions or sores. NEUROLOGICAL: Denies confusion or altered mental status. Denies passing out or loss of consciousness. Denies dizziness or lightheadedness. Denies headache. Denies weakness or paralysis or loss of use of either side. Denies sensory loss, numbness, or tingling. ALL OTHER SYSTEMS REVIEWED AND NEGATIVE. Dictation was performed using [employer]io voice recognition software - REPRODUCTIVE LMP: 09/20/16 post Reproductive: REPORTS: : Past Medical History - Social History Smoking Status: Unknown if Ever Smoked Family History: Reviewed & Not Pertinent Patient has suicidal ideation: No Renal/ Medical History: Denies: Hx Peritoneal Dialysis Past Surgical History: Reports: Hx Adenoidectomy, Hx Tonsillectomy - Immunizations Immunizations up to date: Yes Hx Diphtheria, Pertussis, Tetanus Vaccination: No - refused Vertical Provider Document - CONSTITUTIONAL Agree With Documented VS: Yes Notes: PHYSICAL EXAMINATION: GENERAL: Well-appearing, well-nourished and in no acute distress. HEAD: Atraumatic, normocephalic. EYES: Pupils equal round and reactive to light, extraocular movements intact, sclera anicteric, conjunctiva are normal. ENT: EAC clear b/l. TM's intact b/l without erythema, fluid, or perforation. Nares patent and without discharge. oropharynx clear without exudates. No tonsilar hypertrophy or erythema. Moist mucous membranes. No sinus tenderness. NECK: Normal range of motion, supple without lymphadenopathy LUNGS: Breath sounds clear to auscultation bilaterally and equal. No wheezes rales or rhonchi. HEART: Regular rate and rhythm without murmurs, rubs, gallops. Musculoskeletal: Lt knee/ankle: FROM to passive/active. Strength 5+/5. Lt knee: No erythema, inflammation, effusion, ecchymosis, or deformity noted. + tenderness to the medial joint line. Annabella negative (limited with patient resistance). Pt able to weight bear. Lt ankle: No erythema, inflammation, effusion, ecchymosis, or deformity noted. + tenderness to the ATFL area. Ligamentous stable. + mild tenderness to the lateral malleolus medially. Extremities: No cyanosis, clubbing, or edema b/l. Peripheral pulses 2+. Capillary refill less than 3 seconds. NEUROLOGICAL: Normal speech, normal gait. Normal sensory, motor exams PSYCH: Normal mood, normal affect. SKIN: Warm, Dry, normal turgor, no rashes or lesions noted. - INFECTION CONTROL TRAVEL OUTSIDE OF THE [place] IN LAST 30 DAYS: No - RESPIRATORY O2 Sat by Pulse Oximetry: 97 Course - Re-evaluation Re-evalutation: 01/24/17 18:23 Patient is an afebrile, well-hydrated, 23-year-old female who presents to the ED with left knee and ankle pain, suspect sprain/strain. Vitals are stable. XR of the knee/ankle unremarkable for acute fx/dislocation. PE otherwise unremarkable. An Marques wrap was given for the knee and in ankle stirrup for the left ankle. I was able to watch patient ambulate from the waiting room to the exam room without any difficulties. No crutches will be provided at this time. I have low suspicion/risk for any sepsis, septic joint, disc herniation causing severe spinal stenosis, tendon/ligament rupture, fracture, or dislocation. Patient is aware that her condition can change from initial presentation and she needs to monitor symptoms closely and seek medical attention if any acute changes. Conservative measures otherwise for symptoms. Recheck with your PCM this week. Schedule an appointment with orthopedics for further evaluation and management. Return to the ED with any worsening/ concerning symptoms otherwise as reviewed in discharge. Patient is in agreement. - Vital Signs Vital signs: Temp Pulse Resp BP Pulse Ox 98.5 F 95 18 133/88 H 97 01/24/17 17:18 01/24/17 17:18 01/24/17 17:18 01/24/17 17:18 01/24/17 17:18 Discharge - Discharge Clinical Impression: Left ankle pain Qualifiers: Chronicity: acute Qualified Code(s): M25.572 - Pain in left ankle and joints of left foot Left knee pain Qualifiers: Chronicity: acute Qualified Code(s): M25.562 - Pain in left knee Condition: Stable Disposition: HOME, SELF-CARE Instructions: Marques Wrap ([facility]), Ankle Stirrup Splint ([facility]), Ice & Elevation ([facility]) , Sprained Ankle ([facility]), Sprained Knee ([facility]) Additional Instructions: Rest, Ice, Compression, Elevation Use marques-wrap/ankle stirrup as needed Tylenol/ibuprofen as needed Light stretches daily Strength exercises as able Moist heat and massage may help F/u with your PCP in 2-3 days for a recheck Consider consult(s) with Orthopedics/physical therapy for ongoing/worsening symptoms Return to the ED with any worsening symptoms and/or development of fever, headache, chest pain, palpitations, syncope, shortness of breath, trouble breathing, abdominal pain, n/v/d, muscle weakness/paralysis, numbness/tingling, swelling, redness, or other worsening symptoms that are concerning to you. Forms: Elevated Blood Pressure Referrals: [facility] ([facility] [Provider Group] - Follow up as needed
--- NOTE | 2017-01-24 18:11 | RADIOLOGY REPORT (SQ) ---
EXAM DESCRIPTION: KNEE LEFT 4 VIEW COMPLETED DATE/TIME: 01/24/2017 6:02 pm REASON FOR STUDY: pain s/p twist injury COMPARISON: None. NUMBER OF VIEWS: Four views. TECHNIQUE: AP, lateral, and both oblique radiographic images acquired of the left knee. LIMITATIONS: None. FINDINGS: MINERALIZATION: Normal. BONES: No acute fracture or dislocation. No worrisome bone lesions. JOINT: No effusion. SOFT TISSUES: No soft tissue swelling. No radio-opaque foreign body. OTHER: No other significant finding. IMPRESSION: NEGATIVE STUDY OF THE LEFT KNEE. NO RADIOGRAPHIC EVIDENCE OF ACUTE INJURY. TECHNICAL DOCUMENTATION: JOB ID: [id number] [employer]- All Rights Reserved
--- NOTE | 2017-01-24 18:12 | RADIOLOGY REPORT (SQ) ---
EXAM DESCRIPTION: ANKLE LEFT COMPLETE COMPLETED DATE/TIME: 01/24/2017 6:02 pm REASON FOR STUDY: pain s/p twist injury COMPARISON: None. NUMBER OF VIEWS: Three views. TECHNIQUE: AP, lateral, and oblique radiographic images acquired of the left ankle. LIMITATIONS: None. FINDINGS: MINERALIZATION: Normal. BONES: No acute fracture or dislocation. No worrisome bone lesions. JOINTS: No effusions. SOFT TISSUES: No soft tissue swelling. No foreign body. OTHER: No other significant finding. IMPRESSION: NEGATIVE STUDY OF THE LEFT ANKLE. NO RADIOGRAPHIC EVIDENCE OF ACUTE INJURY. TECHNICAL DOCUMENTATION: JOB ID: [id number] [employer]- All Rights Reserved
== END 2017-01-24 18:38 | disposition home or self-care (01) ==
LOC: ER 17:11
DX: M25.572 Pain in left ankle and joints of left foot (principal); M25.562 Pain in left knee; X50.1XXA Overexertion from prolonged static or awkward postures, initial encounter
CPT/HCPCS: 99283; 73610; 73562; L4350

== ENCOUNTER 2017-04-17 13:10 | Emergency (ER) | payer MEDICAID ==
--- NOTE | 2017-04-17 14:27 | ER Document Report ---
ED Extremity Problem, Lower - General Chief Complaint: Knee Injury Stated Complaint: RIGHT KNEE PAIN Time Seen by Provider: 04/17/17 14:06 Mode of Arrival: Ambulatory Information source: Patient, Relative Notes: Patient is a 21-year-old white female morbidly obese comes in with a complaint of right knee pain. Patient states about a week and half ago she fell in the shower landing in a kneeling type position in the shower itself. She states for about 4 days she was unable to bear really any weight. Only been able to bear weight for the last 3 or 4 days. She complains of being very swollen painful. Denies any other injuries. Patient does state that she was here several months ago for a left ankle sprain and states it has not gotten a whole lot better but has not heard at this time. She is able to ambulate without any difficulty on her left leg. He is here just to have the knee examined. TRAVEL OUTSIDE OF THE [place] IN LAST 30 DAYS: No - HPI Patient complains to provider of: Injury, Pain, Swelling Location: Knee Occurred: Other - We can have Where: Home Onset/Duration: Sudden, Persistent Quality of pain: No pain, Throbbing Severity: Moderate Pain Level: 3 Context: Direct blow, Fell, Twisted Recent injury: No Associated symptoms: denies: Chest pain, Chills, Dizzy, Fainting, Fever, [place] a crack, [place] a pop, Hurts to breath, Painful ambulation, Rapid heart rate, Seizure, Short of breath, Sweaty, Unable to bear weight, Weak, Other Exacerbated by: Movement, Walking Relieved by: Rest Other injuries: No other injuries at this time - Related Data Allergies/Adverse Reactions: aspirin [Aspirin] Allergy (Verified 04/17/17 14:58) Past Medical History - General Information source: Patient Last Menstrual Period: Currently on menstrual period - Social History Smoking Status: Current Every Day Smoker Cigarette use (# per day): Yes - Half-pack a day Chew tobacco use (# tins/day): No Smoking Education Provided: Yes Frequency of alcohol use: Rare Drug Abuse: None Family History: Reviewed & Not Pertinent Renal/ Medical History: Denies: Hx Peritoneal Dialysis Past Surgical History: Reports: Hx Adenoidectomy, Hx Tonsillectomy - Immunizations Immunizations up to date: Yes Hx Diphtheria, Pertussis, Tetanus Vaccination: No - refused Review of Systems - Review of Systems Constitutional: No symptoms reported EENT: No symptoms reported Cardiovascular: No symptoms reported Respiratory: No symptoms reported Gastrointestinal: No symptoms reported Genitourinary: No symptoms reported Female Genitourinary: No symptoms reported Musculoskeletal: Joint pain, Joint swelling, Leg swelling Skin: No symptoms reported Hematologic/Lymphatic: No symptoms reported Neurological/Psychological: No symptoms reported -: Yes All other systems reviewed and negative Physical Exam - Vital signs Interpretation: Normal - General General appearance: Alert In distress: None - HEENT Head: Normocephalic, Atraumatic Eyes: Normal Conjunctiva: Normal Ears: Normal External canal: Normal Tympanic membrane: Normal Mucous membranes: Normal, Moist Pharynx: Normal Neck: Normal - Respiratory Respiratory status: No respiratory distress Chest status: Nontender Breath sounds: Normal Chest palpation: Normal - Cardiovascular Rhythm: Regular Heart sounds: Normal auscultation Murmur: No - Extremities General upper extremity: Normal inspection, Normal ROM General lower extremity: Tender, Edema. No: Normal inspection, Nontender, Normal color, Normal ROM, Normal strength, Normal temperature, Normal weight bearing, Jacob's sign, Other Knee: Tender, Joint effusion, Laxity with valgus stress, Laxity with varus stress, Pain with ROM, Other - Examination of patient's right lower extremity shows that she has moderate amount of swelling to the right knee. She has point tenderness in the medial knee down with open lateral colon ligament area. She has point tenderness there as well as the ACL. She has minimal tenderness on the lateral side. She has mild laxity medially. She has good vascular exam with 2+ pedal pulses on the right side. As well as a popliteal pulse of 2+. He only has flexion to about 35-40. - Neurological Neuro grossly intact: Yes Cognition: Normal Orientation: AAOx4 [place] Coma Scale Eye Opening: Spontaneous [place] Coma Scale Verbal: Oriented [place] Coma Scale Motor: Obeys Commands [place] Coma Scale Total: 15 Speech: Normal Course - Diagnostic Test Radiology reviewed: Reports reviewed - Plain film of the right knee shows mild effusion no other acute findings. - Transfer of Care Notes: 04/17/17 15:11 I have informed patient that this is probably going to need an orthopedic physician to follow-up on an most likely will need an MRI outpatient. I have informed her that this is probably an internal derangement of either the ligaments or tendons or even meniscus and will most likely require surgery. I informed her that this is something we cannot fix in the ER. Given her Dr. Patricia as a referral since he is infection control rn today. Procedures - Immobilization Right Knee Pre-Proc Neuro Vasc Exam: Normal Immobilizer type: Knee immobilizer Performed by: PCT Post-Proc Neuro Vasc Exam: Normal Alignment checked and good: Yes Notes: 04/17/17 15:17 Post application right knee immobilizer shows good position with good dorsalis pedal pulse post application. Discharge - Discharge Clinical Impression: Acute internal derangement of right knee Condition: Good Disposition: HOME, SELF-CARE Instructions: Suspected Internal Knee Injury ([facility]), Knee Immobilizing Splint ( [facility]), Ice & Elevation ([facility]), Use of Crutches ([facility]) Additional Instructions: Home and rest. Use the immobilizer at all times including during sleep. You may loosen it up to ice it down or to sleep however you need to tighten it up before you walk. This will help stabilize her knee. I am giving her crutches if you walk with the immobilizer and there is no pain you may elect not to use the crutches. Given you the name of the orthopedic infection control rn today is Dr. Patricia and you may contact his office to see if he can accommodate you. As we have discussed ice it down 3 times a day ibuprofen for pain and discomfort. And as I mentioned he is very important for you to follow-up with orthopedist since this is something that will most likely" require a surgical intervention. This will not be understood however until after an MRI is performed this has to be done outpatient. Prescriptions: Ibuprofen 800 mg PO TID #30 tablet Forms: Elevated Blood Pressure Referrals: RODOLFO PATRICIA MD [ACTIVE STAFF] - Follow up as needed
--- NOTE | 2017-04-17 15:03 | RADIOLOGY REPORT (SQ) ---
EXAM DESCRIPTION: KNEE RIGHT 4 VIEWS COMPLETED DATE/TIME: 04/17/2017 2:47 pm REASON FOR STUDY: fall right knee swelling COMPARISON: None. NUMBER OF VIEWS: Four views. TECHNIQUE: AP, lateral, and both oblique radiographic images acquired of the right knee. LIMITATIONS: None. FINDINGS: MINERALIZATION: Normal. BONES: No acute fracture or dislocation. No worrisome bone lesions. JOINT: Joint effusion. SOFT TISSUES: No soft tissue swelling. No radio-opaque foreign body. OTHER: No other significant finding. IMPRESSION: Joint effusion. No acute fracture. TECHNICAL DOCUMENTATION: JOB ID: [id number] [employer]- All Rights Reserved
[2017-04-17 15:57] VITALS: BP 127/71
== END 2017-04-17 16:00 | disposition home or self-care (01) ==
LOC: ER 13:10
DX: M23.91 Unspecified internal derangement of right knee (principal); M25.561 Pain in right knee; M25.461 Effusion, right knee; E66.01 Morbid (severe) obesity due to excess calories; F17.210 Nicotine dependence, cigarettes, uncomplicated; Z91.81 History of falling
CPT/HCPCS: 99283; 73564; L1830